=== PATIENT | male | born 1945 | race Caucasian/White ===

== ENCOUNTER 2017-10-15 16:49 | Inpatient (IN) ==
[2017-10-15] MEDS ORDERED: Naloxone 0.4 MG/ML INJ IVP PRN (20:12)
--- NOTE | 2017-10-15 20:12 | Internal Med History&Physical ---
Date of Encounter: 10/15/17 Time of Encounter: 20:05 Internal Medicine - H&P: HPI Chief complaint: weakness Admitted From: Hospital to Hospital Transfer Plans for Post Hospital Care: Home History of present illness: Mr. Broussard is a 72 year old male with history of alcoholism, ileostomy, rectal cancer, GERD, COPD, SD who presented to [facility] as a transfer from [place] ED for further evaluation of sepsis of unknown etiology. Upon examining the patient he reported that when he woke up this morning he felt chills, shaky, cold, weak. The symptoms did not go away after 2 hours so he decided to go to the ED to be evaluated. He denied recent sickness, sick contacts, fever, abdominal pain, nausea, vomiting, dysuria, headache, change in vision, chest pain, change in ileostomy discharge, tenderness at stoma, diaphoresis, diarrhea, melena, hematechezia. His last beer was yesterday evening. He is a current alcoholic since he was 14 years old and drinks a six-pack of beer a day. He is a current smoker of 1.5 packs per day. He is a full code. At [place], the patient meant septic criteria with WBC 16.8 and tachycardia 127. Lactic acid 2.2, INR 1.7, PT 19.3, alkaline phosphatase 229, total bilirubin 3.3, AST 78, ALT 37, ammonia 84, troponin negative. Abdominal CT demonstrating small moderate pericholecystic fluid, cirrhosis with portal venous hypertension. Chest x-ray unremarkable. Patient was given IV fluids, Zosyn, blood cultures taken. Past Med Surg Social Fam HX - Past Medical History Attestation: Yes The following information was validated with the patient. Source: patient Medical history: cancer, COPD, liver disease, myocardial infarction Additional medical history: SD in 1984, colon CA Psychiatric history: no psych history - Past Surgical History Surgical History: appendectomy, colostomy Additional surgical history: 1973 Appe' - Social History Smoking Status: Current every day smoker Smokeless Tobacco Status: No Alcohol use: heavy (6 pack a beer a day) Drug use: none - Family History Brother Hx Family Cancer: Yes (brain) Internal Medicine - H&P: Meds Multivitamin/Iron/Folic Acid [Centrum Complete Multivit Tab] 1 tab PO DAILY [History] Pantoprazole Sodium [Protonix] 40 mg PO DAILY #90 tablet. 12/20/16 [Rx] Loperamide [Imodium] 4 mg PO AD #90 capsule 07/25/17 [Rx] Albuterol Sulfate [Ventolin Hfa] 2 puff IH Q6H #1 hfa.aer.ad 08/08/17 [Rx] Budesonide/Formoterol 160/4.5 [Symbicort 160/4.5] 2 puff IH Q12H #1 inhaler 11/18 [Rx] Ipratropium/Albuterol Neb [Duoneb] 3 ml IH QAM 09/05/17 [History] LORazepam [Ativan] 0.5 mg PO QID PRN 30 Days #90 tablet 10/09/17 [Rx] OxyCODONE Immed Rel [Roxicodone 5 MG] 1 tab PO Q6HR PRN 30 Days #60 tablet 10/09 [Rx] 3 Allergy/AdvReac Type Severity Reaction Status Date / Time No Known Allergies Allergy Verified 01/19/17 11:00 All Systems PM: A 10-system review of systems was performed and is negative for pertinent findings except as documented above in the HPI. - Constitutional Constitutional: chills, weakness, no fever(s), no falls - EENT Eyes: no change in vision - Cardiovascular Cardiovascular ROS IM: no chest pain, no diaphoresis, no palpitations, no syncope - Respiratory Respiratory: dyspnea, no cough, no wheezing - Gastrointestinal Gastrointestinal: no abdominal pain, no melena, no nausea, no vomiting - Genitourinary Genitourinary ROS male: no dysuria, no hematuria, no urinary frequency - Integumentary Integumentary IM: no erythema, no new lesions, no rash - Neurological Neurological ROS: weakness, no loss of vision - Endocrine Endocrine IM: no fatigue - Hematologic/Lymphatic Hematologic/Lymphatic: easy bleeding - Constitutional Vitals: Temp Pulse Resp BP Pulse Ox 97.7 F 76 16 134/69 97 10/15/17 18:50 10/15/17 18:50 10/15/17 18:50 10/15/17 18:50 10/15/17 18:50 General appearance: Present: A&O X 3, pleasant, no acute distress - Head Head exam: Present: atraumatic, normal inspection - Eye Eye exam: Present: conjuntiva pink. Absent: scleral icterus - Respiratory Respiratory exam: Present: CTAB. Absent: rales, rhonchi, wheezes - Cardiovascular Cardiovascular exam: Present: RRR, +S1, +S2. Absent: systolic murmur - GI/Abdominal GI/Abdominal exam: Present: distended, normal bowel sounds, soft. Absent: firm , guarding, tenderness, no peritoneal signs - Extremities Exam Extremities exam: Present: normal inspection. Absent: calf tenderness, pedal edema, tenderness - Back Exam Back exam: Absent: rash noted - Neurological Exam Neurological exam: Present: alert, oriented X3 - Psychiatric Psychiatric exam: Present: normal affect, normal mood - Skin Skin exam: Present: abrasion (echymosis on left upper extremity), dry, intact - Assessment and plan (1) Sepsis Current Visit: Yes Status: Acute Assessment and plan: Sepsis secondary to unknown etiology. Consider early cholecystitis, UTI, bacteremia. Unlikely to be stoma or SBP. Patient has no abdominal tenderness, SIRS tachycardic 127, WBC 16.8, lactic acid 2.2 alkaline phosphatase 229, AST 78, ALT 37, total bilirubin 3.[address] demonstrated small moderate pericholecystic fluid with recommendation for HIDA scan if clinically relevant, cirrhosis with portal venous hypertension. Chest x-ray unremarkable plan -continue IV zosyn -blood cultures taken at [facility] -ordered urinalysis -continue IV fluids at 30ml/kg -trend lactic acid -consider ordering HIDA scan if patient develops abdominal pain and/or urinalysis and blood cultures negative Qualifiers: Qualified Code(s): A41.9 - Sepsis, unspecified organism (2) Cirrhosis of liver Current Visit: Yes Status: Acute Assessment and plan: History liver cirrhosis secondary to alcoholism. Cirrhosis of liver demonstrated by abdominal CT. Lab results correlate with cirrhosis: INR 1.7, elevated liver function tests Qualifiers: Qualified Code(s): K70.30 - Alcoholic cirrhosis of liver without ascites (3) Ileostomy care Current Visit: No Status: Chronic Assessment and plan: Ileostomy s/p history of rectal cancer 3yrs ago for which he underwent chemo and radiation and surgery. Stoma inflamed appearing. He denied tenderness and abnormal drainage from the stoma into ileostomy. -continue to monitor (4) Alcohol abuse Current Visit: Yes Status: Acute Assessment and plan: Current alcoholic six-pack per day since he was 14 years old which is about 58 years now. He was canceled on alcohol cessation and reported wanting to cut down drinking over time. -Continue CIWA protocol (5) COPD (chronic obstructive pulmonary disease) Current Visit: No Status: Chronic Assessment and plan: History of COPD controlled with Symbicort and duonebs. oxygen saturation appropriate on room air -continue medications Qualifiers: Qualified Code(s): J44.9 - Chronic obstructive pulmonary disease, unspecified (6) Tobacco use Current Visit: No Status: Chronic Assessment and plan: 1.5ppd for 58 years, since he was 14 years old. Was counseled on smoking cessation. (7) GERD (gastroesophageal reflux disease) Current Visit: No Status: Chronic Qualifiers: Esophagitis presence: without esophagitis Qualified Code(s): K21.9 - Gastro -esophageal reflux disease without esophagitis (8) DVT prophylaxis Current Visit: Yes Status: Acute Assessment and plan: heparin sq - Time Spent With Patient Total time spent is greater than 50% in coordination of care (as documented) at patient's floor/unit and/or counseling patient:
[2017-10-15] MEDS ORDERED: *HR* LORazepam 2 MG/ML VIAL IVP PRN ×3 (20:25)
[2017-10-15] MEDS: 0.9 % Sodium Chloride 1,000 ML IVC SCH (21:06)
[2017-10-15] MEDS ORDERED: *HR* Heparin 5,000 UNIT/ML VIAL SQ SCH (22:00)
[2017-10-15] MEDS: Piperacillin/Tazobactam 3.375 GM in 0.9 % Sodium Chloride Mini Bag 100 ML IVPB SCH (23:10)
[2017-10-15] MEDS ORDERED: Ipratropium/Albuterol Neb 3 ML IH PRN (23:56)
[2017-10-16 02:13] LABS: Bilirubin,Urine Small (Negative); Blood,Urine Negative (Negative); Clarity,Urine Clear (Clear); Glucose,Urine (UA) Normal (Normal); Ketones,Urine Negative (Negative); Leukocyte Esterase,Urine Negative (Negative); Nitrite,Urine Negative (Negative); Protein,Urine 30 mg/dL (Neg-Trace); Urobilinogen,Urine Normal (Normal)
[2017-10-16 02:25] LABS: Bacteria,Urine Few per hpf (None-Few); RBC,Urine 0-3 per hpf (0-3); WBC,Urine 0-3 per hpf (0-3)
[2017-10-16 02:26] LABS: Color,Urine Pink (Yellow)
[2017-10-16] MEDS: 0.9 % Sodium Chloride 1,000 ML IVC SCH (05:13)
[2017-10-16 06:33] LABS: Segmented Neutrophils % 86.4 %
[2017-10-16 06:35] LABS: Basophils % 0.2 %; Eosinophils # 0.1 K/mcL (0.0-0.6); Eosinophils % 0.6 %; Hematocrit 40.1 % (37.5-50.1); Immature Granulocytes % 0.5 % (0-4); Immature Platelets 6.1 % (1.1-6.1); Lymphocytes # 0.5 K/mcL (0.6-4.6); Lymphocytes % 3.4 %; Mean Corpuscular HGB Conc 34.9 g/dL (31.6-35.5); Mean Corpuscular Hemoglobin 36.6 pg (28.0-33.3); Mean Platelet Volume 11.1 fL (9.4-12.4); Monocytes # 1.4 K/mcL (0.0-1.3); Monocytes % 8.9 %; Neutrophils # 13.3 K/mcL (1.6-8.9); Red Blood Count 3.82 M/mcL (4.19-5.50)
[2017-10-16 06:36] LABS: Platelet Count 75 K/mcL (140-400)
[2017-10-16 06:40] LABS: Prothrombin Time 22.7 Seconds (9.4-12.1)
[2017-10-16 06:55] LABS: Alanine Aminotransferase 29 Units/L (7-52); Albumin/Globulin Ratio 0.9 (1.1-2.2); Alkaline Phosphatase 160 Units/L (34-104); Aspartate Amino Transferase 56 Units/L (13-39); BUN/Creatinine Ratio 14 (6-26); Bilirubin,Total 2.4 mg/dL (0.3-1.0); Blood Urea Nitrogen 14 mg/dL (8-23); Calcium 8.6 mg/dL (8.6-10.3); Carbon Dioxide 21 mEq/L (23-29); Chloride 109 mEq/L (98-107); Globulin 3.2 g/dL (2.4-3.5); Glucose 101 mg/dL (70-105); Osmolality,Calculated 281 (280-300); Potassium 3.5 mEq/L (3.5-5.1); Sodium 135 mEq/L (136-145); Total Protein 6.2 g/dL (6.4-8.9); eGFR For African Americans > 60 (> 60); eGFR For Non-African Americans > 60 (> 60)
[2017-10-16] MEDS: Piperacillin/Tazobactam 3.375 GM in 0.9 % Sodium Chloride Mini Bag 100 ML IVPB SCH ×2 (08:34→16:20)
[2017-10-16] MEDS: Folic Acid 1 MG TABLET PO SCH (08:34)
[2017-10-16] MEDS: Vitamin B Complex/Vit C/Vit E 1 EACH TABLET PO SCH (08:34)
--- NOTE | 2017-10-16 09:42 | Internal Med Progress Note ---
<Brenton Patel S - Last Filed: 10/16/17 13:11> Date of Encounter: 10/16/17 Time of Encounter: 09:00 - Assessment and plan (1) Alcohol abuse Current Visit: Yes Status: Chronic Assessment and plan: On CIWA protocol -last CIWA score was 1 Drinks 6 pack per day of beer -for about 60yrs -counsled on alcohol cessation -pt has scleral icterus -pt denies anxiety, tremors, hallucinations (2) Cirrhosis of liver Current Visit: Yes Status: Acute Assessment and plan: Secondary to EtOH abuse -bilirubin 3.3 -Alk phos 160 -ALT/AST within normal levels -CT scan showed abdominal cirrhosis of liver -INR 1.7, 2.0 this morning -high protein diet recommended, ensure protein TID (3) Sepsis Current Visit: Yes Status: Acute Assessment and plan: Sepsis secondary to unknown etiology. -CT showed pericholecystic fluid, cirrhosis, portal HTN -blood cultures pending -HIDA scan pending, although pt denies abdominal tenderness -unlikely to be SBP, pt has no abd pain -unlikely to be from ileostomy bag -CXR unremarkable SIRS criteria at [facility] -tachycardic 127, WBC 16.8, lactic acid 2.2 -today WBC is 15.4, HR 70 -Pt is on IV Zosyn -Blood cultures pending -UA pending -IVF at 125cc/hr NS -will check lactic acid again Qualifiers: Sepsis type: sepsis due to unspecified organism Qualified Code(s): A41.9 - Sepsis, unspecified organism (4) COPD (chronic obstructive pulmonary disease) Current Visit: No Status: Chronic Assessment and plan: Pt is well controlled with Symbicort and Duonebs His O2 saturation is 97% on RA Pt has no complaints of SOB/wheeze Pt is counsled on smoking cessation to prevent worsening of COPD Qualifiers: COPD type: unspecified COPD Qualified Code(s): J44.9 - Chronic obstructive pulmonary disease, unspecified (5) Tobacco use Current Visit: No Status: Chronic Assessment and plan: 1.5ppd for almost 60yrs Was counseled on smoking cessation. (6) GERD (gastroesophageal reflux disease) Current Visit: No Status: Chronic Assessment and plan: Pt is on prilosec Pt has no complaints at this time of GERD Continue home medications Qualifiers: Esophagitis presence: without esophagitis Qualified Code(s): K21.9 - Gastro -esophageal reflux disease without esophagitis (7) Ileostomy care Current Visit: No Status: Chronic Assessment and plan: Ileostomy s/p history of rectal cancer 3yrs ago for which he underwent chemo and radiation and surgery. Pt has large area of erythema around the ileostomy -pt denies any pain -pt has no pus or signs of infxn of inflamed skin -stump is pulsating and pink, no s/s of ischemia (8) DVT prophylaxis Current Visit: Yes Status: Acute Assessment and plan: SCD (9) Coagulopathy Current Visit: Yes Status: Acute Assessment and plan: Pt has history of cirrhosis -INR of 2, PTT 22.7 -will give 10mg of vitamin K -ultrasound abdomen today -thrombocyotpenia (75k) -will check PT/PTT/INR in AM - Time Spent With Patient Total time spent is greater than 50% in coordination of care (as documented) at patient's floor/unit and/or counseling patient: less than 15 minutes - Subjective Interval history: Pt is seen at the bedside. He is a 72yo male who was admitted to [place] with weakness and feeling like his legs were giving out. He was transferred to [place] due to sepsis of unknown origin. He has a PMH of alcoholism, COPD, MD w/o stents, rectal cancer s/p ileostomy, and cirrhosis of the liver. He currently has no new complaints. He denies chest pain, abdominal pain, SOB, N /V/D, dizziness, fever, chills, vomiting, agitation, feeling tremorous. Pt has a CIWA score of 1, nurse states he is easily agitated but shows no symptoms of DT's or EtOH withdrawal. HIDA scan is pending - will be performed at 1pm because pt ate breakfast Pt met sepsis criteria at [facility] - WBC count of 16.8, HR ax 127, Lac acid 2.2 -pt HR today is 70, t is 97.5 -WBC count is 15.4 -RR is 16 Fluids - 125cc/hr IV NS discontinued this AM Electrolytes - all within normal limits Nutrition - NPO currently for HIDA scan DVT prophylaxis - he has SCD's (pt is thombocytopenic) GI prophylaxis - pt is on Prisolec - Constitutional Vitals: Temp Pulse Resp BP Pulse Ox 97.5 F L 70 16 143/80 97 10/16/17 06:59 10/16/17 06:59 10/16/17 06:59 10/16/17 06:59 10/16/17 06:59 General appearance: Present: A&O X 3, no acute distress, obese - Head Head exam: Present: atraumatic, normal inspection - Eye Eye exam: Present: scleral icterus - Neck Neck exam general surgery: Present: supple - Respiratory Respiratory exam: Present: CTAB - Cardiovascular Cardiovascular exam: Present: RRR, +S1, +S2 - GI/Abdominal GI/Abdominal exam: Present: no peritoneal signs. Absent: tenderness Additional comments: ileostomy in place, stump is pulsating, fecal material present, large area of erythema around the ileostomy bag - Neurological Exam Neurological exam: Present: oriented X3, no focal deficits - Skin Skin exam: Present: intact Internal Medicine: Result - Labs CBC & Chem 7: 10/16/17 06:00 10/16/17 06:00 Labs: Short CBC 10/16/17 Range/Units 06:00 WBC 15.4 H (4.3-11.1) K/mcL Hgb 14.0 (12.9-16.9) g/dL Hct 40.1 (37.5-50.1) % Plt Count 75 L (140-400) K/mcL Neutrophils # 13.3 H (1.6-8.9) K/mcL BMP 10/16/17 06:00 Sodium 135 L Potassium 3.5 Chloride 109 H Carbon Dioxide 21 L BUN 14 Creatinine 0.99 Glucose 101 Calcium 8.6 Liver Function 10/16/17 Range/Units 06:00 Total Bilirubin 2.4 H (0.3-1.0) mg/dL AST 56 H (13-39) Units/L ALT 29 (7-52) Units/L Alkaline Phosphatase 160 H (34-104) Units/L Albumin 3.0 L (3.5-5.7) g/dL Urine 10/16/17 Range/Units 01:20 Urine Color [place] (Yellow) Urine Clarity Clear (Clear) Urine pH 6.0 (5.0-8.0) pH Units Ur Specific [place] 1.020 (1.010-1.025) Urine Protein 30 H (Neg-Trace) mg/dL Urine Glucose (UA) Normal (Normal) mg/dL - ABG Interpretation ABG results: PT/INR, D-dimer PT 22.7 Seconds (9.4-12.1) H 10/16/17 06:00 - VTE Reasons for not Prescribing Prophylaxis: Not indicated-Anticoagulated or INR therapeutic Consult Discharge Plan - Plan Referrals: NONE,PCP [Primary Care Provider] - <Son Bourgeois - Last Filed: 10/16/17 18:16> Date of Encounter: 10/16/17 - Assessment and plan (1) Tobacco use Current Visit: No Status: Chronic (2) GERD (gastroesophageal reflux disease) Current Visit: No Status: Chronic Qualifiers: Esophagitis presence: without esophagitis Qualified Code(s): K21.9 - Gastro -esophageal reflux disease without esophagitis (3) COPD (chronic obstructive pulmonary disease) Current Visit: No Status: Chronic Qualifiers: COPD type: unspecified COPD Qualified Code(s): J44.9 - Chronic obstructive pulmonary disease, unspecified (4) Ileostomy care Current Visit: No Status: Chronic (5) Sepsis Current Visit: Yes Status: Acute Qualifiers: Sepsis type: sepsis due to unspecified organism Qualified Code(s): A41.9 - Sepsis, unspecified organism (6) DVT prophylaxis Current Visit: Yes Status: Acute (7) Cirrhosis of liver Current Visit: Yes Status: Acute Qualifiers: Hepatic cirrhosis type: alcoholic cirrhosis Ascites presence: without ascites Qualified Code(s): K70.30 - Alcoholic cirrhosis of liver without ascites (8) Alcohol abuse Current Visit: Yes Status: Chronic (9) Coagulopathy Current Visit: Yes Status: Acute - Time Spent With Patient Total time spent is greater than 50% in coordination of care (as documented) at patient's floor/unit and/or counseling patient: - Constitutional Vitals: Temp Pulse Resp BP Pulse Ox 97.9 F 67 16 120/67 95 10/16/17 17:21 10/16/17 17:21 10/16/17 17:21 10/16/17 17:21 10/16/17 17:21 Internal Medicine: Result - Labs CBC & Chem 7: 10/16/17 06:00 10/16/17 06:00 Labs: Short CBC 10/16/17 Range/Units 06:00 WBC 15.4 H (4.3-11.1) K/mcL Hgb 14.0 (12.9-16.9) g/dL Hct 40.1 (37.5-50.1) % Plt Count 75 L (140-400) K/mcL Neutrophils # 13.3 H (1.6-8.9) K/mcL BMP 10/16/17 06:00 Sodium 135 L Potassium 3.5 Chloride 109 H Carbon Dioxide 21 L BUN 14 Creatinine 0.99 Glucose 101 Calcium 8.6 Liver Function 10/16/17 Range/Units 06:00 Total Bilirubin 2.4 H (0.3-1.0) mg/dL AST 56 H (13-39) Units/L ALT 29 (7-52) Units/L Alkaline Phosphatase 160 H (34-104) Units/L Albumin 3.0 L (3.5-5.7) g/dL Urine 10/16/17 Range/Units 01:20 Urine Color [place] (Yellow) Urine Clarity Clear (Clear) Urine pH 6.0 (5.0-8.0) pH Units Ur Specific [place] 1.020 (1.010-1.025) Urine Protein 30 H (Neg-Trace) mg/dL Urine Glucose (UA) Normal (Normal) mg/dL - ABG Interpretation ABG results: PT/INR, D-dimer PT 22.7 Seconds (9.4-12.1) H 10/16/17 06:00 - Impressions Impressions Liver Scan Nuclear Medicine 10/16/17 13:20 IMPRESSION: No scintigraphic evidence of acute cholecystitis. Slow hepatic washout consistent with chronic liver parenchymal disease. Gallbladder ejection fraction of 83% which is normal. D/ / Esha Saldivar MD / Esha Saldivar MD Interpreting Provider: Esha Saldivar MD Abdomen Ultrasound 10/16/17 15:30 IMPRESSION: Thickened gallbladder wall with nonmobile echogenic focus suggesting polyp. No ductal dilatation. Splenomegaly with splenic size of 600 ml without focal mass. Fatty infiltration of the liver. Liver is within normal limits in size. Prominent splenic vessels. Overall findings suggesting cirrhosis. D/ / 10/16/2017 16:52:22 Jennifer Rust MD / tyrone Interpreting Provider: Jennifer Rust MD - Attending Attestation Given the brady-stomal eczema, will have wound care Nurse take care of this. She will be consulted. I did portray poor prognosis given advanced Cirrhosis, he does have protein calorie malnutrition, coagulopathy and low platletes with some hyperbilirubinemia. Would stop antibiotics once cultures come back negative. I examined this patient and my medical decision-making was reviewed with the Resident Physician. I agree with the documented findings, disposition and treatment plan as described except to the extent set forth below.
[2017-10-16] MEDS ORDERED: *HR* Phytonadione 5 MG TABLET PO ONE (10:46)
[2017-10-16 11:13] LABS: Lipase 55 Units/L (11-82)
[2017-10-16] MEDS: Budesonide/Formoterol 160/4.5 MDI IH SCH ×2 (11:23→21:45)
[2017-10-16] MEDS ORDERED: Thiamine (B-1) 100 MG, Folic Acid 1 MG, MVI, adult with vitamin K 10 ML in 0.9 % Sodi... IVPB SCH ×2 (18:00→20:00)
[2017-10-17] MEDS: Piperacillin/Tazobactam 3.375 GM in 0.9 % Sodium Chloride Mini Bag 100 ML IVPB SCH ×2 (00:51→08:34)
[2017-10-17 04:56] LABS: INR 1.9; Prothrombin Time 21.2 Seconds (9.4-12.1)
[2017-10-17 04:59] LABS: Activated Partial Thrombo Time 37.3 Seconds (26.0-36.0)
[2017-10-17 05:11] LABS: Alanine Aminotransferase 27 Units/L (7-52); Albumin/Globulin Ratio 0.9 (1.1-2.2); Alkaline Phosphatase 162 Units/L (34-104); Aspartate Amino Transferase 53 Units/L (13-39); BUN/Creatinine Ratio 14 (6-26); Bilirubin,Total 2.1 mg/dL (0.3-1.0); Blood Urea Nitrogen 13 mg/dL (8-23); Calcium 8.3 mg/dL (8.6-10.3); Carbon Dioxide 22 mEq/L (23-29); Chloride 109 mEq/L (98-107); Globulin 3.3 g/dL (2.4-3.5); Glucose 104 mg/dL (70-105); Osmolality,Calculated 284 (280-300); Potassium 3.4 mEq/L (3.5-5.1); Sodium 137 mEq/L (136-145); Total Protein 6.3 g/dL (6.4-8.9); eGFR For African Americans > 60 (> 60); eGFR For Non-African Americans > 60 (> 60)
[2017-10-17 05:37] LABS: Vitamin B12 568 pg/mL (250-1100)
[2017-10-17 05:38] LABS: Folate > 22.3 ng/mL (3.0-16.0)
[2017-10-17 07:44] VITALS: BP 135/75
[2017-10-17] MEDS: Folic Acid 1 MG TABLET PO SCH (08:34)
[2017-10-17] MEDS: Vitamin B Complex/Vit C/Vit E 1 EACH TABLET PO SCH (08:34)
[2017-10-17 09:01] LABS: Hemoglobin 13.9 g/dL (12.9-16.9)
[2017-10-17 09:03] LABS: Basophils % 0.5 %; Eosinophils # 0.2 K/mcL (0.0-0.6); Eosinophils % 2.2 %; Hematocrit 40.4 % (37.5-50.1); Immature Granulocytes % 0.5 % (0-4); Immature Platelets 6.5 % (1.1-6.1); Lymphocytes # 0.6 K/mcL (0.6-4.6); Lymphocytes % 6.3 %; Mean Corpuscular HGB Conc 34.4 g/dL (31.6-35.5); Mean Corpuscular Hemoglobin 36.4 pg (28.0-33.3); Mean Corpuscular Volume 105.8 fL (83.0-100.0); Mean Platelet Volume 11.8 fL (9.4-12.4); Monocytes % 11.5 %; Neutrophils # 6.9 K/mcL (1.6-8.9); Red Blood Count 3.82 M/mcL (4.19-5.50); Red Cell Distribution Width 15.3 % (11.5-14.5)
[2017-10-17 09:08] LABS: Platelet Count 70 K/mcL (140-400)
--- NOTE | 2017-10-17 09:33 | Discharge Summary ---
<Brenton Patel S - Last Filed: 10/17/17 09:27> - NOTES TO OUTPATIENT PROVIDER Notes to Outpatient Provider: Pt needs to be closely monitored by GI doctor for crirrhosis. Pt counsled on alcohol abuse. Orders not resulted at time of discharge: Pending orders 10/16/17 10:13 Culture,Blood [BC] Routine Culture,Blood,Additional [BC] Routine 10/17/17 04:19 Homocysteine AM 0400 MMA (VIT B12 STATUS) AM 0400 Date of Encounter: 10/17/17 Time of Encounter: 09:00 - Discharge Diagnosis (1) Sepsis Priority: Primary Status: Acute Assessment and Plan: Sepsis secondary to unknown etiology. -CT showed pericholecystic fluid, cirrhosis, portal HTN -blood cultures pending. Pt wants to be discharged despite BC not being back. He is advised to come back to the hospital if they come back positive -HIDA scan showed EF of 83% -unlikely to be SBP, pt has no abd pain -unlikely to be from ileostomy bag -CXR unremarkable -abdominal ultrasound showed thickened GB with nonmobile echogenic focus suggesting polyp, no ductal dilation, splenomegaly w/ splenic size normal. fatty infiltration of liver, prominent splenic vessles SIRS criteria at [place] -tachycardic 127, WBC 16.8, lactic acid 2.2 -today WBC is 8.7, HR 65 -Pt is on IV Zosyn. Will DC that today annd discharge pt on PO augmentin x 10days -Blood cultures pending, pt doesn't want to wait for them to come back Qualifiers: Sepsis type: sepsis due to unspecified organism Qualified Code(s): A41.9 - Sepsis, unspecified organism (2) Cirrhosis of liver Priority: Secondary Status: Acute Assessment and Plan: Secondary to EtOH abuse -bilirubin 2.1 -Alk phos 160 -ALT/AST within normal levels -CT scan showed abdominal cirrhosis of liver -INR 1.79 this morning -high protein diet recommended, ensure protein TID -pt is encourgaed to eat a high protein diet, ensure TID and to quit drinking -MELD score is 20 (3) Alcohol abuse Priority: Secondary Status: Chronic Assessment and Plan: On CIWA protocol -last CIWA score was 2 Drinks 6 pack per day of beer -for about 60yrs -counsled on alcohol cessation -pt has scleral icterus -pt denies anxiety, tremors, hallucinations (4) COPD (chronic obstructive pulmonary disease) Priority: Secondary Status: Chronic Assessment and Plan: Pt is well controlled with Symbicort and Duonebs His O2 saturation is 97% on RA Pt has no complaints of SOB/wheeze Pt is counsled on smoking cessation to prevent worsening of COPD Qualifiers: COPD type: unspecified COPD Qualified Code(s): J44.9 - Chronic obstructive pulmonary disease, unspecified (5) Tobacco use Priority: Secondary Status: Chronic Assessment and Plan: 1.5ppd for almost 60yrs Was counseled on smoking cessation. Refuses nictoine patch (6) GERD (gastroesophageal reflux disease) Priority: Secondary Status: Chronic Assessment and Plan: Pt is on prilosec Pt has no complaints at this time of GERD Continue home medications Qualifiers: Esophagitis presence: without esophagitis Qualified Code(s): K21.9 - Gastro -esophageal reflux disease without esophagitis (7) Ileostomy care Priority: Secondary Status: Chronic Assessment and Plan: Ileostomy s/p history of rectal cancer 3yrs ago for which he underwent chemo and radiation and surgery. Pt has large area of erythema around the ileostomy -pt denies any pain -pt has no pus or signs of infxn of inflamed skin -stump is pulsating and pink, no s/s of ischemia -Wound care consulted but pt doesn't want to wait (8) DVT prophylaxis Priority: Secondary Status: Acute Assessment and Plan: SCD (9) Coagulopathy Priority: Secondary Status: Acute Assessment and Plan: Pt has history of cirrhosis -INR of 1.9, PTT 37 -thrombocyotpenia (75k) -encouraged alcohol cessation and follow up with PCP outpt and to get referral for GI Hospital course: Mr. Broussard is a 72 year old male Discharge discussed with: patient, nurse Time spent discussing smoking cessation with patient: 3 to 10 minutes - Time Spent with Patient Total time spent providing and/or coordinating discharge services: Less than 30 minutes - Discharge Medications Prescriptions: Amoxicillin/Clavulanate [Augmentin] 875 mg PO BIDWM 10 Days #20 tablet Home Medications: Multivitamin/Iron/Folic Acid [Centrum Complete Multivit Tab] 1 tab PO DAILY [History] Pantoprazole Sodium [Protonix] 40 mg PO DAILY #90 tablet. 12/20/16 [Rx] Loperamide [Imodium] 4 mg PO AD #90 capsule 07/25/17 [Rx] Budesonide/Formoterol 160/4.5 [Symbicort 160/4.5] 2 puff IH Q12H #1 inhaler 11/18 [Rx] Albuterol Sulfate [Ventolin Hfa] 2 puff IH Q6H PRN 10/16/17 [History] LORazepam [Ativan] 0.5 mg PO TID PRN 10/16/17 [History] OxyCODONE Immed Rel [Roxicodone 5 MG] 1 tab PO BID PRN 10/16/17 [History] Amoxicillin/Clavulanate [Augmentin] 875 mg PO BIDWM 10 Days #20 tablet 10/17/17 [Rx] Allergies/Adverse Reactions: 3 Allergy/AdvReac Type Severity Reaction Status Date / Time No Known Allergies Allergy Verified 10/16/17 09:12 Date of admission: 10/16/17 12:05 Primary care physician: PCP NONE Consults: 10/16/17 10:46 Consult to Telephone Station Installer [CONS] Routine Reason for SW Consult: alcoholism 10/16/17 17:42 Consult to Wound Care [CONS] Routine Reason for Consult: ileostomy care Call Completed: No - Constitutional Vitals: Temp Pulse Resp BP Pulse Ox 97.6 F 72 17 135/75 97 10/17/17 07:42 10/17/17 07:42 10/17/17 07:42 10/17/17 07:42 10/17/17 07:42 General appearance: Present: disheveled, A&O X 3, no acute distress, obese - Head Head exam: Present: normal inspection - Neck Neck exam general surgery: Present: supple - Respiratory Respiratory exam: Present: CTAB - Cardiovascular Cardiovascular exam: Present: RRR, +S1, +S2 - GI/Abdominal GI/Abdominal exam: Present: soft, no peritoneal signs. Absent: tenderness Additional comments: ileostomy bag in place - Neurological Exam Neurological exam: Present: oriented X3, no focal deficits - Psychiatric Psychiatric exam: Present: normal mood - Skin Skin exam: Present: excoriation (around ileostomy bag) - Patient Status Disposition: Home, Self-Care Condition: Fair Functional capacity at discharge: independent ambulation Overall status at discharge: patient is progressing back to baseline - Discharge Instructions Instructions: Amoxicillin/Clavulanate Potassium (By mouth), Sepsis (DC) Follow Up With: NONE,PCP [Primary Care Provider] - Brenton Patel [Resident] - 10/25/17 (follow up on cirrhosis, etoh abuse, smoking cessation) Familia Fernandez MD [Non-Partnered Physician] - 10/24/17 (Follow up on cirrhosis -pt has long hx of alcohol abuse) - Diet and Activity Activity: increase activity as tolerated Diet: other (high protein diet) - VTE Reasons for not Prescribing Prophylaxis: Not indicated-Anticoagulated or INR therapeutic Documentation of Mechanical Device: Intermittent pneumatic compression device <Eddy Champagne - Last Filed: 10/17/17 20:18> Orders not resulted at time of discharge: Pending orders 10/16/17 10:13 Culture,Blood [BC] Routine Culture,Blood,Additional [BC] Routine 10/17/17 04:19 Homocysteine AM 0400 MMA (VIT B12 STATUS) AM 0400 Date of Encounter: 10/17/17 - Discharge Diagnosis (1) Tobacco use Status: Chronic (2) GERD (gastroesophageal reflux disease) Status: Chronic (3) COPD (chronic obstructive pulmonary disease) Status: Chronic (4) Ileostomy care Status: Chronic (5) Sepsis Status: Acute (6) DVT prophylaxis Status: Acute (7) Cirrhosis of liver Status: Acute (8) Alcohol abuse Status: Chronic (9) Coagulopathy Status: Acute Hospital course: Mr. Broussard is a 72 year old male - Time Spent with Patient Total time spent providing and/or coordinating discharge services: Date of admission: 10/16/17 12:05 Primary care physician: PCP NONE Consults: 10/16/17 10:46 Consult to Telephone Station Installer [CONS] Routine Reason for SW Consult: alcoholism 10/16/17 17:42 Consult to Wound Care [CONS] Routine Reason for Consult: ileostomy care Call Completed: No - Constitutional Vitals: Temp Pulse Resp BP Pulse Ox 97.6 F 72 17 135/75 97 10/17/17 07:42 10/17/17 07:42 10/17/17 07:42 10/17/17 07:42 10/17/17 07:42 - Attending Attestation Patient was seen and examined. I agree with the discharge summary as dictated above by the resident physician. Discharge plans and recommendations were made under my direct supervision. Addendum entered and electronically signed by Brenton Patel 10/17/17 09:55: Add to diagnosis -Hypokalemia today was 3.4, replaced 40mEq PO potassium citrate
[2017-10-17] MEDS: Budesonide/Formoterol 160/4.5 MDI IH SCH (10:58)
[2017-10-17] MEDS ORDERED: Thiamine (B-1) 100 MG, Folic Acid 1 MG, MVI, adult with vitamin K 10 ML in 0.9 % Sodi... IVPB SCH (18:00)
== END 2017-10-17 11:08 | disposition home or self-care (01) | DRG 872 ==
LOC: 2ANU
PROVIDERS: ADMIT Internal Medicine; ATTEND Internal Medicine

== ENCOUNTER 2018-07-16 05:39 | Observation (INO) ==
[2018-07-16] MEDS ORDERED: 0.9 % Sodium Chloride 1,000 ML IVC SCH (11:00)
[2018-07-16] MEDS ORDERED: Naloxone 0.4 MG/ML INJ IVP PRN (11:08)
[2018-07-16] MEDS ORDERED: *HR* HYDROcodone/Acet 5/325 mg TABLET PO PRN (11:08)
--- NOTE | 2018-07-16 11:21 | Internal Med History&Physical ---
Date of Encounter: 07/16/18 Time of Encounter: 10:30 Internal Medicine - H&P: HPI Chief complaint: Bleeding from the ileostomy site Admitted From: Emergency Dept Plans for Post Hospital Care: Home History of present illness: Mr. Broussard is a 73 year old male with a past medical history of rectal cancer status post ileostomy, cirrhosis, chronic kidney disease stage III who presented with bloody ileostomy output to [facility]. Patient stated that yesterday he was sitting upright in chair when he began changing his ileostomy bag and aspirin as he took the back out, he noticed spurting blood coming out of his ileostomy. He claims that he lost "a lot of blood maybe up to 2-3 units" He then decided to come to the ER and called EMS. He did notice that he was feeling dizzy while attempting to stand up and overall very weak. He was noted to have low blood pressure on arrival to the count of 70s systolic but he responded with 2 L of fluid bolus and 2 units of blood were also given to him. He also received lab work which showed a WBC count of 17,000, hemoglobin of 5.9 with a hematocrit of 19.2. His baseline hemoglobin runs a little above 8. He was also found to have acute on chronic renal failure his baseline creatinine is roughly around 1.7 and today it was 3.11. He was then sent over to the main campus for further management of his GI bleed. Right now the patient has already received 2 units of blood and he does not feel as dizzy as he was earlier in the morning. He denies any fevers chills shakes or rigors. Denies any urinary problems or breathing problems. Past Med Surg Social Fam HX - Past Medical History Medical history: cancer, COPD, liver disease, myocardial infarction Additional medical history: colon cancer Psychiatric history: no psych history - Past Surgical History Surgical History: appendectomy, colostomy, tonsilectomy Additional surgical history: Patient reports previous eye surgery, abdominal surgery, - Social History Smoking Status: Current every day smoker Smokeless Tobacco Status: No Alcohol use: heavy, recent Drug use: none - Family History Brother Hx Family Cancer: Yes (brain) - Additional Family History Additional family history: No significant family history of GI bleed Internal Medicine - H&P: Meds Multivitamin/Iron/Folic Acid [Centrum Complete Multivit Tab] 1 tab PO DAILY 04/02/15 [History] Pantoprazole Sodium [Protonix] 40 mg PO DAILY #90 tablet. 12/01/17 [Rx] Budesonide/Formoterol 160/4.5 [Symbicort 160/4.5] 2 puff IH Q12H #1 inhaler 02/07/18 [Rx] Albuterol Sulfate [Ventolin Hfa] 2 puff IH Q6H PRN #1 hfa.aer.ad 04/10/18 [Rx] Loperamide [Imodium] 4 mg PO PRN PRN 06/13/18 [History] Ergocalciferol (VITAMIN D2) [Vitamin D2] 50,000 units PO FR 06/14/18 [History] Ferrous Sulfate 325 mg PO DAILY 06/20/18 [History] LORazepam [Ativan] 0.5 mg PO TID PRN 30 Days #90 tablet 07/12/18 [Rx] OxyCODONE Immed Rel [Roxicodone 5 MG] 1 tab PO BID PRN 30 Days #60 tablet 07/12/18 [Rx] Allergy/AdvReac Type Severity Reaction Status Date / Time No Known Allergies Allergy Verified 01/01/18 09:51 All Systems PM: A 10-system review of systems was performed and is negative for pertinent findings except as documented above in the HPI. - Constitutional Vitals: Temp Pulse Resp BP Pulse Ox 98.5 F 80 16 94/57 100 07/16/18 10:19 07/16/18 10:19 07/16/18 10:19 07/16/18 10:07/16/18 10:19 Exam: GENERAL: Alert, moderate distress, cooperative EYES: PERRLA, EOMI EARS: External ears normal, canals clear OROPHARYNX: Lips, mucosa, and tongue normal. Teeth and gums normal. Oropharynx normal. NECK: No jugulovenous distention, No carotid bruits, Carotid pulse normal contour, Supple LUNGS: Lungs clear to auscultation, Good diaphragmatic excursion CARDIAC: Normal S1 and S2; no rubs, murmurs, or gallops ABDOMEN: Ileostomy site bag is new. There is small amount roughly 10 mL of blood in the bag. Is appreciated in the back The patient does have dried blood on the lower abdomen/pelvic region from prior bleed EXTREMITIES: Extremities normal, no deformities, edema, clubbing or skin dis coloration. Good capillary refill., No ulcers NEURO: Gait not tested Reflexes normal and symmetric. Sensation grossly intact, Cranial nerves II-XII intact PULSES: 2+ radial, 2+ carotid Rest of the exam is non contributory - Assessment and Plan (1) Anemia associated with acute blood loss Current Visit: Yes Status: Acute Assessment and plan: Acute severe symptomatic anemia likely due to blood loss from ileostomy site. He has been given 2 units of PRBCs already and we will repeat a CBC right now and then trended every 6-8 hours if still low at his baseline is roughly around 8.3 he has been placed on PPI and GI has been consulted. He will remain nothing by mouth until a plan from GI is established. (2) Acute renal failure superimposed on stage 3 chronic kidney disease Current Visit: Yes Status: Acute Assessment and plan: The patient has acute on chronic renal failure His last CKD is stage III Most likely from volume depletion due to severe anemia. He has received IV fluids and we will continue gentle hydration and repeat B MP Qualifiers: Acute renal failure type: unspecified Qualified Code(s): N17.9 - Acute kidney failure, unspecified; N18.3 - Chronic kidney disease, stage 3 (moderate) (3) Leukocytosis, unspecified Current Visit: Yes Status: Acute Assessment and plan: Unclear etiology but there is no clear focus of infection. We will trend it for now with just blood cultures and not started any antibiotics unless clearly indicated Qualifiers: Leukocytosis type: leukemoid reaction Qualified Code(s): D72.823 - Leukemoid reaction (4) Cirrhosis of liver Current Visit: No Status: Chronic Assessment and plan: Appears compensated clinically. We will monitor closely. His mentation is good Qualifiers: Hepatic cirrhosis type: alcoholic cirrhosis Ascites presence: without ascites Qualified Code(s): K70.30 - Alcoholic cirrhosis of liver without ascites - Summary of Assessment and Plan Summary of Assessment and Plan: DVT prophylaxis-EP CD - Time Spent With Patient Total time spent is greater than 50% in coordination of care (as documented) at patient's floor/unit and/or counseling patient:75 min Greater than 35 minutes
[2018-07-16] MEDS ORDERED: *HR* FentaNYL (PF) 100 MCG/2 ML VIAL ONE (15:42)
[2018-07-16] MEDS ORDERED: *HR* Midazolam HCl 5 MG/5 ML VIAL IVP ONE ×2 (15:42→16:30)
[2018-07-16] MEDS ORDERED: *HR* FentaNYL (PF) 100 MCG/2 ML VIAL IVP ONE (16:30)
[2018-07-16] MEDS ORDERED: Simethicone 40 MG/0.6 ML MLS IR ONE (16:30)
--- NOTE | 2018-07-16 16:30 | Pre-Sedation Evaluation ---
Pre-sedation evaluation - Pre-sedation checklist Date of procedure: 07/16/18 Procedure: EGD Recent Vitals: Last Vital Signs Temp 98.6 F 07/16/18 16:13 Pulse 70 07/16/18 16:13 Resp 16 07/16/18 16:13 BP 105/52 07/16/18 16:13 Pulse Ox 100 07/16/18 16:13 H&P (including ROS) documented in medical record: Yes Previous reaction to sedatives/anesthetics: No Dietary Status: NPO after Midnight Dentition: poor dentition ASA Classification *see protocol: CLASS III-Severe systemic disease
[2018-07-16] MEDS: Neosporin OINT 15 GM TUBE TP SCH ×2 (18:18→20:43)
[2018-07-16] MEDS: Pantoprazole 40 MG VIAL IVP SCH (18:20)
[2018-07-16] MEDS ORDERED: Pantoprazole 40 MG in 0.9 % Sodium Chloride 50 ML IVPB SCH (21:00)
[2018-07-17] MEDS: Pantoprazole 40 MG VIAL IVP SCH ×2 (06:06→18:50)
[2018-07-17 07:19] LABS: Basophils % 0.3 %; Hemoglobin 6.7 g/dL (12.9-16.9)
[2018-07-17 07:22] LABS: Eosinophils # 0.3 K/mcL (0.0-0.6); Eosinophils % 3.1 %; Hematocrit 21.4 % (37.5-50.1); Immature Granulocytes % 0.4 % (0-4); Immature Platelets 2.3 % (1.1-6.1); Lymphocytes # 0.7 K/mcL (0.6-4.6); Lymphocytes % 7.8 %; Mean Corpuscular HGB Conc 31.3 g/dL (31.6-35.5); Mean Platelet Volume 10.5 fL (9.4-12.4); Monocytes # 0.8 K/mcL (0.0-1.3); Monocytes % 8.4 %; Neutrophils # 7.4 K/mcL (1.6-8.9); Red Blood Count 2.23 M/mcL (4.19-5.50); Red Cell Distribution Width 20.6 % (11.5-14.5)
[2018-07-17 07:42] LABS: Albumin 2.7 g/dL (3.5-5.7); Albumin/Globulin Ratio 1.4 (1.1-2.2); Bilirubin,Total 0.8 mg/dL (0.3-1.0); Calcium 8.1 mg/dL (8.6-10.3); Potassium 4.7 mEq/L (3.5-5.1); Total Protein 4.7 g/dL (6.4-8.9)
[2018-07-17] MEDS: Neosporin OINT 15 GM TUBE TP SCH ×3 (08:04→18:50)
[2018-07-17] MEDS ORDERED: 0.9 % Sodium Chloride 1,000 ML IVC SCH (08:45)
[2018-07-17 09:29] LABS: Platelet Count 83 K/mcL (140-400)
[2018-07-17 09:30] LABS: Platelet Estimate Decreased (Normal)
[2018-07-17 09:32] LABS: Anisocytosis 2+ (Not Present)
--- NOTE | 2018-07-17 11:48 | Discharge Summary ---
Date of Encounter: 07/17/18 Time of Encounter: 18:00 - Discharge Diagnosis (1) Anemia associated with acute blood loss Priority: Primary Status: Acute Assessment and Plan: 73 year old male with a past medical history of rectal cancer status post ileostomy, cirrhosis, chronic kidney disease stage III who presented with bloody ileostomy output to [facility]. Patient stated that yesterday he was sitting upright in chair when he began changing his ileostomy bag and aspirin as he took the back out, he noticed spurting blood coming out of his ileostomy. He claims that he lost "a lot of blood maybe up to 2-3 units" He then decided to come to the ER and called EMS. He did notice that he was feeling dizzy while attempting to stand up and overall very weak. He was noted to have low blood pressure on arrival to the count of 70s systolic but he responded with 2 L of fluid bolus and 2 units of blood were also given to him. He was assessed with acute severe symptomatic anemia likely due to blood loss from ileostomy site. He was transfused 2 units of PRBCs and started on PPI BID. GI was consulted and performed a small bowel enteroscopy showing bleeding from the external surface of the ileostomy which was cauterized with APC. GI recommend local care of the ileostomy with a triple antibiotic His hemoglobin was however 6.7 this am and he was transfused 2 units of PRBC. Will repeat CBC prior to discharge. (2) Cirrhosis of liver Priority: Primary Status: Chronic Assessment and Plan: Appears compensated clinically. We will monitor closely. His mentation is good Qualifiers: Hepatic cirrhosis type: alcoholic cirrhosis Ascites presence: without ascites Qualified Code(s): K70.30 - Alcoholic cirrhosis of liver without ascites (3) Acute renal failure superimposed on stage 3 chronic kidney disease Priority: Primary Status: Acute Qualifiers: Acute renal failure type: unspecified Qualified Code(s): N17.9 - Acute kidney failure, unspecified; N18.3 - Chronic kidney disease, stage 3 (moderate) (4) Leukocytosis, unspecified Priority: Primary Status: Acute Qualifiers: Leukocytosis type: leukemoid reaction Qualified Code(s): D72.823 - Leukemoid reaction Hospital course: Mr. Broussard is a 73 year old male - Time Spent with Patient Total time spent providing and/or coordinating discharge services: - Discharge Medications Prescriptions: New Maximiliano/Poly/Nataly OINT [Triple Antibiotic Ointment] 1 appl TP TID 30 Days #1 tube Continue Multivitamin/Iron/Folic Acid [Centrum Complete Multivit Tab] 1 tab PO DAILY Pantoprazole Sodium [Protonix] 40 mg PO DAILY #90 tablet. Budesonide/Formoterol 160/4.5 [Symbicort 160/4.5] 2 puff IH Q12H #1 inhaler Albuterol Sulfate [Ventolin Hfa] 2 puff IH Q6H PRN #1 hfa.aer.ad PRN Reason: Shortness Of Breath Loperamide [Imodium] 4 mg PO PRN PRN MDD 12 tab/24hr PRN Reason: Diarrhea Ergocalciferol (VITAMIN D2) [Vitamin D2] 50,000 units PO FR LORazepam [Ativan] 0.5 mg PO TID PRN 30 Days #90 tablet PRN Reason: Anxiety OxyCODONE Immed Rel [Roxicodone 5 MG] 1 tab PO BID PRN 30 Days #60 tablet PRN Reason: Pain Ferrous Sulfate [Iron] 325 mg PO DAILY Home Medications: Multivitamin/Iron/Folic Acid [Centrum Complete Multivit Tab] 1 tab PO DAILY 04/02/15 [History] Pantoprazole Sodium [Protonix] 40 mg PO DAILY #90 tablet. 12/01/17 [Rx] Budesonide/Formoterol 160/4.5 [Symbicort 160/4.5] 2 puff IH Q12H #1 inhaler 02/07/18 [Rx] Albuterol Sulfate [Ventolin Hfa] 2 puff IH Q6H PRN #1 hfa.aer.ad 04/10/18 [Rx] Loperamide [Imodium] 4 mg PO PRN PRN MDD 12 tab/24hr 06/13/18 [History] Ergocalciferol (VITAMIN D2) [Vitamin D2] 50,000 units PO FR 06/14/18 [History] LORazepam [Ativan] 0.5 mg PO TID PRN 30 Days #90 tablet 07/12/18 [Rx] OxyCODONE Immed Rel [Roxicodone 5 MG] 1 tab PO BID PRN 30 Days #60 tablet 07/12/18 [Rx] Ferrous Sulfate [Iron] 325 mg PO DAILY 07/16/18 [History] Maximiliano/Poly/Nataly OINT [Triple Antibiotic Ointment] 1 appl TP TID 30 Days #1 tube 07/17/18 [Rx] Allergies/Adverse Reactions: Allergy/AdvReac Type Severity Reaction Status Date / Time No Known Allergies Allergy Verified 07/16/18 19:37 Date of admission: 07/16/18 09:45 Primary care physician: Letitia Acevedo MD Consults: 07/16/18 11:11 Consult to Gastroenterology [CONS] Routine Consulting Provider: [facility] Reason for Consult: Bleeding from colostomy site. Symptomatic blood loss anemia Time Notified: 11:12 Call Completed: Yes - Constitutional Vitals: Temp Pulse Resp BP Pulse Ox 97.5 F L 72 16 93/52 100 07/17/18 07:01 07/17/18 07:01 07/17/18 07:01 07/17/18 07:01 07/17/18 07:01 Exam: GENERAL: Alert, moderate distress, cooperative EYES: PERRLA, EOMI EARS: External ears normal, canals clear OROPHARYNX: Lips, mucosa, and tongue normal. Teeth and gums normal. Oropharynx normal. NECK: No jugulovenous distention, No carotid bruits, Carotid pulse normal contour, Supple LUNGS: Lungs clear to auscultation, Good diaphragmatic excursion CARDIAC: Normal S1 and S2; no rubs, murmurs, or gallops ABDOMEN: Ileostomy site WNL. Stool present in bag EXTREMITIES: Extremities normal, no deformities, edema, clubbing or skin discoloration. Good capillary refill., No ulcers NEURO: Gait not tested Reflexes normal and symmetric. Sensation grossly intact, Cranial nerves II-XII intact PULSES: 2+ radial, 2+ carotid Rest of the exam is non contributory - Patient Status Disposition: Home, Self-Care Condition: Good - Discharge Instructions Follow Up With: Letitia Acevedo MD [Primary Care Provider] - (Web request sent. Office will call with date and time. Thank you) Anatoliy Foster MD [Partnered Physician] - (Web request sent. Office will call with date and time of appointment. Thank you)
--- NOTE | 2018-07-17 12:35 | Gastroenterology Consult Note ---
<Toribio Yoo Elmira - Last Filed: 07/17/18 12:32> Date of Encounter: 07/17/18 Time of Encounter: 10:30 - Assessment and plan (1) Symptomatic anemia Current Visit: No Status: Acute Assessment and plan: On admission Hgb 5.9 and SBP 70s. He responded to fluid bolus and was given 2 units PRBC. Hgb 6.7 this AM. Continue to monitor CBC and transfuse PRBC as needed. Small bowel enteroscopy completed yesterday by Dr. Foster; bleeding noted from external surface of ileostomy, s/p cauterization with APC. Use triple antibiotic ointment 3 times a day. (2) Alcoholic cirrhosis Current Visit: No Status: Acute Assessment and plan: MELD-Na 27, Child-Cota class B. AFP 5 on 06/14/2018. Liver US 06/15/2018 with cirrhosis with ascites, and cholelithiasis. Lifestyle Changes: 1. Total abstinence from alcohol including social drinking. 2. No smoking. 3. Gradual loss of weight. 4. Drink at least 3 cups of coffee due to its antioxidant effects in the liver, it reduces risk of HCC and advance fibrosis. 5. If needed, use less than 2 g/day of Tylenol (in divided doses). 6. Vaccination for Hep A, B, Pneumococcus if not already received and yearly influenza vaccination by PCP. 7. Avoid NSAIDS as can cause kidney damage. 8. Avoid benzodiazepines and other sedatives such as anti-histamines, narcotics etc. as can cause encephalopathy or confusion. 9. Take a late carbohydrate meal supplement as it reduces glucose production from protein breakdown and thus improves nutrition. 10. In cirrhosis, statins are safe to use and also improve portal hypertension and decrease risk of HCC. 11. Screening: Hepatocellular cancer screening: US of liver and AFP every 6 months Qualifiers: Ascites presence: without ascites Qualified Code(s): K70.30 - Alcoholic cirrhosis of liver without ascites - Time Spent With Patient Total time spent is greater than 50% in coordination of care (as documented) at patient's floor/unit and/or counseling patient: GI History of Present Illness - Data of Consult Patient: known to practice within the last 3 years Consult date: 07/17/18 Requesting Physician: Kelly Ross MD - Consult Narrative Reason for consult: Blood from ileostomy History of present illness: Mr. Broussard is a 73 year old male with PMHx of rectal cancer dx 05/07/2014 s/p ileostomy, COPD, cirrhosis, PA, who presented with bloody ileostomy output. He states he noticed blood "spurting" from his ileostomy while he was changing bags. On admission Hgb 5.9 and SBP 70s. He responded to fluid bolus and was given 2 units PRBC. Procedures: Enteroscopy 06/26/2018 Dr. Alatorre: Grade 1 varices, 2 cm hiatal hernia, portal hypertensive gastropathy. Colonoscopy 06/15/2017 Dr. Alatorre: Thick mucous plugs, diverticulosis. EGD 06/14/2017 Dr. Alatorre: Gastritis, mild Schatzki ring, possible Medina's NSAIDs: None Anticoagulation: None Past Med Surg Social Fam HX - Past Medical History Medical history: cancer, COPD, liver disease, myocardial infarction Additional medical history: colon cancer Psychiatric history: no psych history - Past Surgical History Surgical History: appendectomy, colostomy, tonsilectomy Additional surgical history: Patient reports previous eye surgery, abdominal surgery, - Social History Smoking Status: Current every day smoker Smokeless Tobacco Status: No Alcohol use: heavy, recent Drug use: none - Family History Brother Hx Family Cancer: Yes (brain) - Gastrointestinal Gastrointestinal: Present: as per HPI - Constitutional Constitutional: as per HPI - EENT Eyes: as per HPI Ears: Present: as per HPI Nose, mouth and throat: Present: as per HPI - Cardiovascular Cardiovascular ROS: Present: as per HPI - Respiratory Respiratory IM: Present: as per HPI - Genitourinary Genitourinary: Absent: change in color, Urinary frequency - Neurological ROS Neurological GI: Present: as per HPI - Hematologic/Lymphatic Hematologic/Lymphatic pediatric: Present: as per HPI - Musculoskeletal Musculoskeletal ROS GI: Present: as per HPI - Integumentary Integumentary GI: Present: as per HPI - Psychiatric ROS Psychiatric GI: Present: as per HPI - Endocrine Endocrine IM: Present: as per HPI - Constitutional Vitals: Temp Pulse Resp BP Pulse Ox 97.5 F L 72 16 93/52 100 07/17/18 07:01 07/17/18 07:01 07/17/18 07:01 07/17/18 07:01 07/17/18 07:01 General appearance: Present: cooperative, A&O X 3, no acute distress, answers questions appropriately - Head Head exam: Present: atraumatic, normocephalic - Eye Eye exam: Present: normal appearance, sclera anicteric - ENT ENT exam: Present: mucous membranes moist - Neck Neck exam general surgery: Present: normal inspection, trachea midline - Respiratory Respiratory exam: Present: decreased breath sounds, CTAB. Absent: rales, rhonchi - Cardiovascular Cardiovascular exam: Present: RRR, +S1, +S2 - GI/Abdominal GI/Abdominal exam: Present: soft, no peritoneal signs. Absent: distended, firm, guarding, tenderness Additional comments: ileostomy in place, with fecal material noted in bag. No blood noted. - Rectal Rectal exam: Present: deferred - Extremities Exam Extremities exam: Present: warm - Neurological Exam Neurological exam: Present: no focal deficits - Psychiatric Psychiatric exam: Present: normal affect, normal mood - Skin Skin exam: Present: dry, intact, normal color, warm Results - Labs CBC & Chem 7: 07/17/18 06:56 07/17/18 06:56 Labs: Last Result Calcium 8.1 mg/dL (8.6-10.3) L 07/17/18 06:56 Entire Visit Hgb 6.7 g/dL (12.9-16.9) L 07/17/18 06:56 Hct 21.4 % (37.5-50.1) L 07/17/18 06:56 Total Bilirubin 0.8 mg/dL (0.3-1.0) 07/17/18 06:56 AST 30 Units/L (13-39) 07/17/18 06:56 ALT 22 Units/L (7-52) 07/17/18 06:56 Consult Discharge Plan - Plan Referrals: Letitia Acevedo MD [Primary Care Provider] - (Web request sent. Office will call with date and time. Thank you) Anatoliy Foster MD [Partnered Physician] - (Web request sent. Office will call with date and time of appointment. Thank you) Prescriptions: Maximiliano/Poly/Nataly OINT [Triple Antibiotic Ointment] 1 appl TP TID 30 Days #1 tube <Anatoliy Foster - Last Filed: 07/17/18 17:55> Date of Encounter: 07/17/18 Time of Encounter: 18:00 - Time Spent With Patient Total time spent is greater than 50% in coordination of care (as documented) at patient's floor/unit and/or counseling patient: GI History of Present Illness - Data of Consult Requesting Physician: Kelly Ross MD - Consult Narrative History of present illness: Mr. Broussard is a 73 year old male - Constitutional Vitals: Temp Pulse Resp BP Pulse Ox 98.6 F 75 16 105/48 100 07/17/18 15:46 07/17/18 15:46 07/17/18 15:46 07/17/18 15:46 07/17/18 07:01 Results - Labs CBC & Chem 7: 07/17/18 06:56 07/17/18 06:56 Labs: Last Result Calcium 8.1 mg/dL (8.6-10.3) L 07/17/18 06:56 Entire Visit Hgb 6.7 g/dL (12.9-16.9) L 07/17/18 06:56 Hct 21.4 % (37.5-50.1) L 07/17/18 06:56 Total Bilirubin 0.8 mg/dL (0.3-1.0) 07/17/18 06:56 AST 30 Units/L (13-39) 07/17/18 06:56 ALT 22 Units/L (7-52) 07/17/18 06:56 - Attending Attestation I have personally performed a face to face evaluation on this patient. I have re viewed and agree with the care plan. History and Exam by me shows: Patient seen patient wanted to be [facility]. On examination: Alert and awake not in distress ileostomy site looks fine and the output is yellow with no blood. Status post-APC of 2 red spot on the external ileostomy site. Recommendation: Follow up with GI as an outpatient for ongoing care of his cirrhosis
[2018-07-17] MEDS ORDERED: Sodium Bicarbonate 50 MEQ/50 ML VIAL IVP ONE (15:18)
[2018-07-17] MEDS ORDERED: 0.9 % Sodium Chloride 250 ML ONE ×2 (15:22→18:38)
[2018-07-17 20:20] VITALS: BP 102/59
[2018-07-17 21:49] LABS: Hematocrit 25.9 % (37.5-50.1); Immature Granulocytes % 0.5 % (0-4); Lymphocytes % 7.2 %; Mean Corpuscular Volume 92.8 fL (83.0-100.0); Red Blood Count 2.79 M/mcL (4.19-5.50)
[2018-07-17 21:51] LABS: Basophils % 0.4 %; Eosinophils # 0.3 K/mcL (0.0-0.6); Eosinophils % 3.1 %; Hemoglobin 8.4 g/dL (12.9-16.9); Immature Platelets 2.5 % (1.1-6.1); Lymphocytes # 0.8 K/mcL (0.6-4.6); Mean Corpuscular HGB Conc 32.4 g/dL (31.6-35.5); Mean Corpuscular Hemoglobin 30.1 pg (28.0-33.3); Mean Platelet Volume 10.7 fL (9.4-12.4); Monocytes # 1.2 K/mcL (0.0-1.3); Monocytes % 10.9 %; Neutrophils # 8.4 K/mcL (1.6-8.9); Red Cell Distribution Width 18.8 % (11.5-14.5); Segmented Neutrophils % 77.9 %
[2018-07-17 21:52] LABS: Platelet Count 84 K/mcL (140-400)
== END 2018-07-17 23:00 | disposition home or self-care (01) ==
LOC: 3ANU
PROVIDERS: ADMIT Internal Medicine; ATTEND Internal Medicine

== ENCOUNTER 2018-07-18 06:20 | Observation (INO) ==
--- NOTE | 2018-07-18 06:37 | Emergency Department Note ---
Disposition Clinical Impression: Anemia, GI bleeding Disposition: Admitted As Inpatient Condition: Fair Instructions: Gastrointestinal Bleeding (ED) Referrals: NONE,PCP [Primary Care Provider] - Anatoliy Foster MD [Partnered Physician] - Forms: ED Satisfaction Letter GI Bleed HPI - General Chief complaint: ED GI Bleed Stated complaint: bleeding into colostomy Time Seen by Provider: 07/18/18 06:28 Source: patient Limitations: no limitations Nursing Notes Reviewed: Yes Vital Signs Reviewed: Yes - History of Present Illness HPI Narrative: 73-year-old male with history of cirrhosis, rectal cancer status of post ileastormy presents for bleeding in ileastomy bag. Pt reported the symptoms started the day before yesterday. He was admitted to hospital for hemoglobin 5.4. Pt was given 2 unites blood and repeated hemoglobin 8.4. Pt hand endoscope in hospital which didn't indicate active bleeding. Pt was discharged home and suggested to follow up with Dr. Foster. Pt stayed in hospital hallway due to no transportation. Pt noticed some blood in ileastomy bag this morning and decided to check back in. Pt denied dizziness or abdominal pain. Pt Subjective Complaint: other (dark blood in ileostomy bag) Consistency: constant Context: history of GI bleed, liver disease - Related Data Home Medications Medication Instructions Recorded Confirmed RX: Multivitamin/Iron/Folic Acid 1 tab PO DAILY 04/02/15 07/18/18 [Centrum Complete Multivit Tab] RX: Loperamide [Imodium] 4 mg PO PRN PRN MDD 12 tab/24hr 06/13/18 07/18/18 RX: Ergocalciferol (VITAMIN D2) 50,000 units PO FR 06/14/18 07/18/18 [Vitamin D2] RX: Ferrous Sulfate [Iron] 325 mg PO DAILY 07/16/18 07/18/18 Previous Rx's Medication Instructions Recorded RX: Pantoprazole Sodium [Protonix] 40 mg PO DAILY #90 tablet. 12/01/17 RX: Budesonide/Formoterol 160/4.5 2 puff IH Q12H #1 inhaler 02/07/18 [Symbicort 160/4.5] RX: Albuterol Sulfate [Ventolin 2 puff IH Q6H PRN #1 hfa.aer.ad 04/10/18 Hfa] RX: LORazepam [Ativan] 0.5 mg PO TID PRN 30 Days #90 07/12/18 tablet RX: OxyCODONE Immed Rel 1 tab PO BID PRN 30 Days #60 tablet 07/12/18 [Roxicodone 5 MG] RX: Maixmiliano/Poly/Nataly OINT [Triple 1 appl TP TID 30 Days #1 tube 07/17/18 Antibiotic Ointment] Allergies Allergy/AdvReac Type Severity Reaction Status Date / Time No Known Allergies Allergy Verified 07/16/18 19:37 Constitutional: Denies: fever, chills Eyes: Denies: eye pain ENT ED: Denies: ear pain Cardiovascular: Denies: chest pain Respiratory: Denies: cough Gastrointestinal: Reports: other (blood in ileostomy bag). Denies: abdominal pain Genitourinary: Denies: urgency Musculoskeletal: Denies: back pain Integumentary: Denies: rash Neurological: Denies: headache Psychiatric: Denies: anxiety Endocrine: Denies: fatigue Hematological/Lymphatic: Denies: easy bleeding Allergic/Immunologic: Denies: facial swelling Past Medical History - Past Medical History Medical history: Reports: cancer, COPD, liver disease, myocardial infarction Surgical history: Reports: appendectomy, colostomy, tonsilectomy Psychiatric history: Reports: no psych history - Social History Smoking Status: Current every day smoker Smokeless Tobacco Status: No Alcohol use: Reports: heavy, recent Drug use: Reports: none Physical Exam - General Limitations: no limitations General appearance: alert, in no apparent distress - Head Head exam: atraumatic - Eye Eye exam: Present: normal appearance - ENT ENT exam: normal exam - Neck Neck exam: Present: normal inspection - Chest Chest inspection: Present: normal inspection - Respiratory Respiratory exam: Present: normal lung sounds bilaterally - Cardiovascular Cardiovascular exam: Present: regular rate - Abdominal Exam Abdominal exam: Present: soft, Non-Tender, other (mild dark blood in ileostomy bag) - Extremities Exam Extremities exam: Present: normal inspection, full ROM. Absent: tenderness - Back Exam Back exam: Present: normal inspection, full ROM - Neurological Exam Neurological exam: Present: alert, oriented X3 - Psychiatric Psychiatric exam: Present: normal affect, normal mood - Skin Skin exam: Present: warm, intact Course Vital Signs Temperature 97.7 F 07/18/18 06:24 Pulse Rate 116 07/18/18 06:24 Respiratory Rate 18 07/18/18 06:24 Blood Pressure 99/62 07/18/18 06:24 O2 Sat by Pulse Oximetry 99 07/18/18 06:24 Temperature 97.7 F 07/18/18 06:24 Pulse Rate 104 07/18/18 09:54 Respiratory Rate 18 07/18/18 09:54 Blood Pressure 98/69 07/18/18 09:54 O2 Sat by Pulse Oximetry 99 07/18/18 09:54 Oxygen Delivery Oxygen Delivery Room Air GI Bleed - [facility] Narrative Medical decision making narrative: 73-year-old male with history of cirrhosis, chronic renal failure, rectal cancer status post ileostomy presents with blood in ileostomy bag. Patient was admitted to the hospital yesterday and got 2 units blood transfusion. Patient was discharged home with the hemoglobin level 8.4. Patient was suggested to follow up with Dr. Foster outpatient. Patient denied abdominal pain or dizziness. Patient stayed in hospital hallway after being discharged. He checked back in this morning. Small amount of dark red blood in eating stormy bag. Repeat labs today: Hemoglobin 8.7, other labs in baseline. Contacted Dr. Foster's office. They will call patient for appointment shortly. director of radio services contacted for transplantation. Patient will be discharged home. 08:20 am, prior discharge, pt complained of mild dizziness when sitting on wheel chair. Pt has full bag (ileostomy ) of blood. repeat CBC 8.3. ammonia, lipase slightly elevated. Concerns of active GI bleeding. Dr. Foster consulted. Dr. Foster will look at endoscopy this afternoon. Pt will be admitted to hospital with GI consult. Abdominal CT: no acute change. Dr. Herrera has seen the patient and ag samira the above plan. - Lab Data Lab results reviewed: Yes I reviewed the patient's lab results. Result diagrams: 07/18/18 09:16 07/18/18 07:23 Lab Results 07/18/18 07/18/18 07/18/18 Range/Units 07:23 07:23 09:16 WBC 12.3 H 16.9 H (4.3-11.1) K/mcL RBC 2.92 L 2.81 L (4.19-5.50) M/mcL Hgb 8.7 L 8.3 L (12.9-16.9) g/dL Hct 27.1 L 26.4 L (37.5-50.1) % MCV 92.8 94.0 (83.0-100.0) fL MCH 29.8 29.5 (28.0-33.3) pg MCHC 32.1 31.4 L (31.6-35.5) g/dL RDW 20.1 H 20.3 H (11.5-14.5) % Plt Count 102 L 135 L (140-400) K/mcL MPV 10.3 10.7 (9.4-12.4) fL Immature Gran % 0.9 0.7 (0-4) % Seg Neutrophils % 81.0 82.1 % Lymphocytes % 5.3 5.7 % Monocytes % 10.1 9.3 % Eosinophils % 2.5 1.8 % Basophils % 0.2 0.4 % Neutrophils # 10.0 H 13.9 H (1.6-8.9) K/mcL Lymphocytes # 0.7 1.0 (0.6-4.6) K/mcL Monocytes # 1.2 1.6 H (0.0-1.3) K/mcL Eosinophils # 0.3 0.3 (0.0-0.6) K/mcL Basophils # 0.0 0.1 (0.0-0.2) K/mcL Sodium 135 L (136-145) mEq/L Potassium 4.8 (3.5-5.1) mEq/L Chloride 115 H (98-107) mEq/L Carbon Dioxide 13 L (23-29) mEq/L BUN 35 H (8-23) mg/dL Creatinine 2.81 H (0.70-1.30) mg/dL Est GFR ( Amer) 27 L (> 60) Est GFR (Non-Af Amer) 22 L (> 60) BUN/Creatinine Ratio 12 (6-26) Glucose 138 H (70-105) mg/dL Calculated Osmolality 290 (280-300) Calcium 8.7 (8.6-10.3) mg/dL Ammonia (16-53) mcmol/L Lipase (11-82) Units/L 07/18/18 07/18/18 Range/Units 09:16 09:16 WBC (4.3-11.1) K/mcL RBC (4.19-5.50) M/mcL Hgb (12.9-16.9) g/dL Hct (37.5-50.1) % MCV (83.0-100.0) fL MCH (28.0-33.3) pg MCHC (31.6-35.5) g/dL RDW (11.5-14.5) % Plt Count (140-400) K/mcL MPV (9.4-12.4) fL Immature Gran % (0-4) % Seg Neutrophils % % Lymphocytes % % Monocytes % % Eosinophils % % Basophils % % Neutrophils # (1.6-8.9) K/mcL Lymphocytes # (0.6-4.6) K/mcL Monocytes # (0.0-1.3) K/mcL Eosinophils # (0.0-0.6) K/mcL Basophils # (0.0-0.2) K/mcL Sodium (136-145) mEq/L Potassium (3.5-5.1) mEq/L Chloride (98-107) mEq/L Carbon Dioxide (23-29) mEq/L BUN (8-23) mg/dL Creatinine (0.70-1.30) mg/dL Est GFR ( Amer) (> 60) Est GFR (Non-Af Amer) (> 60) BUN/Creatinine Ratio (6-26) Glucose (70-105) mg/dL Calculated Osmolality (280-300) Calcium (8.6-10.3) mg/dL Ammonia 68 H (16-53) mcmol/L Lipase 187 H (11-82) Units/L - Radiology Data Radiology results reviewed: Yes I reviewed the patient's radiology results. COMPARISON: Abdominal/pelvic CT, 06/25/2018 and 10/15/2017 HISTORY: ORDERING SYSTEM PROVIDED HISTORY: gi bleeding Rectal bleeding for 5 weeks. Initial evaluation. History of colon cancer with chemotherapy and radiation therapy. FINDINGS: Lower Chest: The visualized lung bases reveal minimal right basilar atelectasis. The visualized cardiac and posterior mediastinal structures are unremarkable. Organs: Within the abdomen, the unenhanced pancreas and adrenal glands are within normal limits. Small stones noted in the dependent portion of the gallbladder lumen. The liver is small with a nodular contour compatible with cirrhosis. The spleen is not enlarged measuring 11.9 cm in length. There is a small amount of perihepatic and perisplenic ascites. The unenhanced kidneys are unremarkable. No hydronephrosis, nephrolithiasis or ureterolithiasis is identified. GI/Bowel: Distal small bowel ostomy noted in the right lower quadrant. The unopacified small bowel is otherwise unremarkable. No free air is identified. There is evidence of previous partial sigmoid resection with rectosigmoid anastomosis in the pelvis. Presacral soft tissue fullness again noted near the site of surgery which could be related to scarring and/or tumor. On image 171, this soft tissue measures approximately 2.1 cm in AP dimension by 5.1 cm in transverse dimension. Colonic diverticulosis is noted without focal inflammatory changes to suggest diverticulitis. Minor haziness of the mesenteric fat appears stable from the previous exam. Retroperitoneum/Peritoneum: No obvious lymphadenopathy is seen although evaluation is limited by the lack of IV contrast. The abdominal aorta appears normal in caliber with minor atherosclerotic calcifications. Pelvis: Within the pelvis, the urinary bladder is grossly unremarkable. No gross abnormality of the prostate or seminal vesicles is identified. Anterior pelvic wall midline ventral hernia again noted containing a loop of distal small bowel without evidence of bowel incarceration or obstruction. Bones/Soft Tissues: No acute osseous abnormalities are identified. There are degenerative changes affecting the hips, SI joints and spine. No dominant lytic or sclerotic bone lesions are identified. CT/CT abd pelvis wo no iv no oral IMPRESSION: 1. History of previous partial sigmoid resection with rectosigmoid anastomosis in the pelvis. Residual presacral soft tissue fullness appears stable since 2018 which may be related to post treatment changes. No abscess or other postoperative complication identified. 2. Cirrhosis with a small amount of perihepatic and perisplenic ascites. 3. Cholelithiasis. 4. Colonic diverticulosis without evidence of diverticulitis. 5. Right lower quadrant ileostomy. 6. Anterior pelvic wall ventral hernia containing fat and a loop of the distal small bowel without evidence of bowel incarceration or obstruction. 7. No convincing evidence of intra-abdominal or intrapelvic metastatic disease on this unenhanced study. D/ / Lcoo Blue MD / Loco Blue MD Interpreting Provider: Loco Blue MD Attestation Statement - Attestation Attestation: I, Zac Herrera DO have provided [id number] time during the care of this patient. Detailed review the presentation, symptoms, medical history were discussed and reviewed with the advanced practice provider Adam Cabrera PA-C/CASE RESOLUTION SPECIALIST. Medical intervention labs and imaging studies were reviewed in detail. See full documentation of physical exam and course of care in the advanced practice provider's note. I agree with the determined course of care, medical intervention and disposition put forth by the advanced practice provider. See below documentation for changes or alterations in documentation.
[2018-07-18 07:37] LABS: Basophils % 0.2 %; Eosinophils # 0.3 K/mcL (0.0-0.6); Eosinophils % 2.5 %; Hematocrit 27.1 % (37.5-50.1); Hemoglobin 8.7 g/dL (12.9-16.9); Immature Granulocytes % 0.9 % (0-4); Lymphocytes # 0.7 K/mcL (0.6-4.6); Lymphocytes % 5.3 %; Mean Corpuscular HGB Conc 32.1 g/dL (31.6-35.5); Mean Corpuscular Hemoglobin 29.8 pg (28.0-33.3); Mean Corpuscular Volume 92.8 fL (83.0-100.0); Mean Platelet Volume 10.3 fL (9.4-12.4); Monocytes # 1.2 K/mcL (0.0-1.3); Monocytes % 10.1 %; Platelet Count 102 K/mcL (140-400); Red Blood Count 2.92 M/mcL (4.19-5.50); Red Cell Distribution Width 20.1 % (11.5-14.5)
[2018-07-18 07:55] LABS: Calcium 8.7 mg/dL (8.6-10.3); Potassium 4.8 mEq/L (3.5-5.1)
[2018-07-18] MEDS ORDERED: 0.9 % Sodium Chloride 500 ML IVC ONE (08:43)
[2018-07-18 09:30] LABS: Eosinophils % 1.8 %; Hematocrit 26.4 % (37.5-50.1); Hemoglobin 8.3 g/dL (12.9-16.9); Immature Granulocytes % 0.7 % (0-4); Lymphocytes % 5.7 %; Mean Corpuscular HGB Conc 31.4 g/dL (31.6-35.5); Mean Corpuscular Hemoglobin 29.5 pg (28.0-33.3); Mean Platelet Volume 10.7 fL (9.4-12.4); Monocytes % 9.3 %; Platelet Count 135 K/mcL (140-400); Red Blood Count 2.81 M/mcL (4.19-5.50); Red Cell Distribution Width 20.3 % (11.5-14.5); Segmented Neutrophils % 82.1 %
[2018-07-18 09:31] LABS: Basophils # 0.1 K/mcL (0.0-0.2); Basophils % 0.4 %; Eosinophils # 0.3 K/mcL (0.0-0.6); Monocytes # 1.6 K/mcL (0.0-1.3); Neutrophils # 13.9 K/mcL (1.6-8.9)
--- NOTE | 2018-07-18 10:39 | Emergency Department Note ---
Disposition Clinical Impression: Anemia Qualifiers: Anemia type: iron deficiency Iron deficiency anemia type: chronic blood loss Qualified Code(s): D50.0 - Iron deficiency anemia secondary to blood loss (chronic) GI bleeding Qualifiers: GI bleed type/associated pathology: unspecified gastrointestinal hemorrhage type Qualified Code(s): K92.2 - Gastrointestinal hemorrhage, unspecified Disposition: Admitted As Inpatient Condition: Fair Instructions: Gastrointestinal Bleeding (ED) Reasons to Return/Additional Instructions: 1. Follow-up with Dr. Foster 2. Return to ER immediately for any concerns Referrals: NONE,PCP [Primary Care Provider] - Anatoliy Foster MD [Partnered Physician] - Forms: ED Satisfaction Letter Time of Disposition: 10:49 General Adult HPI - General Chief complaint: ED GI Bleed Stated complaint: bleeding into colostomy Time Seen by Provider: 07/18/18 06:28 Source: patient Limitations: no limitations - History of Present Illness Pain Scale: 0 - Related Data Home Medications Medication Instructions Recorded Confirmed Multivitamin/Iron/Folic Acid 1 tab PO DAILY 04/02/15 07/16/18 [Centrum Complete Multivit Tab] Loperamide [Imodium] 4 mg PO PRN PRN MDD 12 tab/24hr 06/13/18 07/16/18 Ergocalciferol (VITAMIN D2) 50,000 units PO FR 06/14/18 07/16/18 [Vitamin D2] Ferrous Sulfate [Iron] 325 mg PO DAILY 07/16/18 07/16/18 Previous Rx's Medication Instructions Recorded Pantoprazole Sodium [Protonix] 40 mg PO DAILY #90 tablet.dr 12/01/17 Budesonide/Formoterol 160/4.5 2 puff IH Q12H #1 inhaler 02/07/18 [Symbicort 160/4.5] Albuterol Sulfate [Ventolin Hfa] 2 puff IH Q6H PRN #1 hfa.aer.ad 04/10/18 LORazepam [Ativan] 0.5 mg PO TID PRN 30 Days #90 07/12/18 tablet OxyCODONE Immed Rel [Roxicodone 5 1 tab PO BID PRN 30 Days #60 tablet 07/12/18 MG] Maximiliano/Poly/Nataly OINT [Triple 1 appl TP TID 30 Days #1 tube 07/17/18 Antibiotic Ointment] Allergies Allergy/AdvReac Type Severity Reaction Status Date / Time No Known Allergies Allergy Verified 07/16/18 19:37 Constitutional: Denies: fever, chills Eyes: Denies: eye pain ENT ED: Denies: ear pain Cardiovascular: Denies: chest pain Respiratory: Denies: cough Gastrointestinal: Reports: other (blood in ileostomy bag). Denies: abdominal pain Genitourinary: Denies: urgency Musculoskeletal: Denies: back pain Integumentary: Denies: rash Neurological: Denies: headache Psychiatric: Denies: anxiety Endocrine: Denies: fatigue Hematological/Lymphatic: Denies: easy bleeding Allergic/Immunologic: Denies: facial swelling Past Medical History - Past Medical History Medical history: Reports: cancer, COPD, liver disease, myocardial infarction Surgical history: Reports: appendectomy, colostomy, tonsilectomy Psychiatric history: Reports: no psych history - Social History Smoking Status: Current every day smoker Smokeless Tobacco Status: No Alcohol use: Reports: heavy, recent Drug use: Reports: none Physical Exam - General Limitations: no limitations General appearance: alert, in no apparent distress Course Vital Signs Temperature 97.7 F 07/18/18 06:24 Pulse Rate 116 07/18/18 06:24 Respiratory Rate 18 07/18/18 06:24 Blood Pressure 99/62 07/18/18 06:24 O2 Sat by Pulse Oximetry 99 07/18/18 06:24 Temperature 97.7 F 07/18/18 06:24 Pulse Rate 104 07/18/18 09:54 Respiratory Rate 18 07/18/18 09:54 Blood Pressure 98/69 07/18/18 09:54 O2 Sat by Pulse Oximetry 99 07/18/18 09:54 Oxygen Delivery Oxygen Delivery Room Air Medical Decision Making - Lab Data Result diagrams: 07/18/18 09:16 07/18/18 07:23 Lab Results 07/18/18 07/18/18 07/18/18 Range/Units 07:23 07:23 09:16 WBC 12.3 H 16.9 H (4.3-11.1) K/mcL RBC 2.92 L 2.81 L (4.19-5.50) M/mcL Hgb 8.7 L 8.3 L (12.9-16.9) g/dL Hct 27.1 L 26.4 L (37.5-50.1) % MCV 92.8 94.0 (83.0-100.0) fL MCH 29.8 29.5 (28.0-33.3) pg MCHC 32.1 31.4 L (31.6-35.5) g/dL RDW 20.1 H 20.3 H (11.5-14.5) % Plt Count 102 L 135 L (140-400) K/mcL MPV 10.3 10.7 (9.4-12.4) fL Immature Gran % 0.9 0.7 (0-4) % Seg Neutrophils % 81.0 82.1 % Lymphocytes % 5.3 5.7 % Monocytes % 10.1 9.3 % Eosinophils % 2.5 1.8 % Basophils % 0.2 0.4 % Neutrophils # 10.0 H 13.9 H (1.6-8.9) K/mcL Lymphocytes # 0.7 1.0 (0.6-4.6) K/mcL Monocytes # 1.2 1.6 H (0.0-1.3) K/mcL Eosinophils # 0.3 0.3 (0.0-0.6) K/mcL Basophils # 0.0 0.1 (0.0-0.2) K/mcL Sodium 135 L (136-145) mEq/L Potassium 4.8 (3.5-5.1) mEq/L Chloride 115 H (98-107) mEq/L Carbon Dioxide 13 L (23-29) mEq/L BUN 35 H (8-23) mg/dL Creatinine 2.81 H (0.70-1.30) mg/dL Est GFR ( Amer) 27 L (> 60) Est GFR (Non-Af Amer) 22 L (> 60) BUN/Creatinine Ratio 12 (6-26) Glucose 138 H (70-105) mg/dL Calculated Osmolality 290 (280-300) Calcium 8.7 (8.6-10.3) mg/dL Ammonia (16-53) mcmol/L Lipase (11-82) Units/L 07/18/18 07/18/18 Range/Units 09:16 09:16 WBC (4.3-11.1) K/mcL RBC (4.19-5.50) M/mcL Hgb (12.9-16.9) g/dL Hct (37.5-50.1) % MCV (83.0-100.0) fL MCH (28.0-33.3) pg MCHC (31.6-35.5) g/dL RDW (11.5-14.5) % Plt Count (140-400) K/mcL MPV (9.4-12.4) fL Immature Gran % (0-4) % Seg Neutrophils % % Lymphocytes % % Monocytes % % Eosinophils % % Basophils % % Neutrophils # (1.6-8.9) K/mcL Lymphocytes # (0.6-4.6) K/mcL Monocytes # (0.0-1.3) K/mcL Eosinophils # (0.0-0.6) K/mcL Basophils # (0.0-0.2) K/mcL Sodium (136-145) mEq/L Potassium (3.5-5.1) mEq/L Chloride (98-107) mEq/L Carbon Dioxide (23-29) mEq/L BUN (8-23) mg/dL Creatinine (0.70-1.30) mg/dL Est GFR ( Amer) (> 60) Est GFR (Non-Af Amer) (> 60) BUN/Creatinine Ratio (6-26) Glucose (70-105) mg/dL Calculated Osmolality (280-300) Calcium (8.6-10.3) mg/dL Ammonia 68 H (16-53) mcmol/L Lipase 187 H (11-82) Units/L Attestation Statement - Attestation Attestation: I, Zac Herrera DO have provided [id number] time during the care of this patient. Detailed review the presentation, symptoms, medical history were discussed and reviewed with the advanced practice provider Adam Cabrera PA-C/[employer] MACHINE OPERATOR. Medical intervention labs and imaging studies were reviewed in detail. See full documentation of physical exam and course of care in the advanced practice pr dusty's note. I agree with the determined course of care, medical intervention and disposition put forth by the advanced practice provider. See below documentation for changes or alterations in documentation. 73-year-old male presents emergency room for evaluation of blood from his ostomy site. Patient was just discharged from the hospital last night and waited in the hallway the emergency room until this morning to be seen. He was unable to be transported back to his home. Patient denies any other falls trauma or injury. Denies any nausea vomiting or diarrhea. Denies any fevers or chills. Does not have any recent medical issues or concerns. Patient had a detailed wor kup completed in the hospital setting and was discharged home. Patient is hemodynamic was stable on presentation. Labs appear to be unremarkable this point. His ostomy is filled with blood. There is no visible signs of trauma to the ostomy site itself this time. Repeat CT imaging the abdomen along with remainder of symptomatically control were completed. Consultation was placed onto the on-call dental office coordinator who recommended admission for monitoring. Hospitalist was contacted and admission process will be established. Otherwise the patient is clinically stable despite findings are concerning for acute GI bleed of persistent GI bleed. Patient will be monitored here in the emergency room to the admission process is completed. Lungs are clear heart is regular abdomen is soft no guarding or rigidity. Ostomy was evaluated. No signs or rash or lesions noted on skin evaluation. Patient is neurologically intact and speaking in full sentences. Patient will be treated symptomatically and then monitor here until admission is established. See detailed documentation of the physical exam, medical intervention, medical decision-making and disposition in the advanced practice provider's note. No critical care provider the patient's treatment course at this time.
[2018-07-18] MEDS ORDERED: Naloxone 0.4 MG/ML INJ IVP PRN (10:46)
[2018-07-18] MEDS ORDERED: traMADol 50 MG TABLET PO PRN (10:46)
[2018-07-18] MEDS ORDERED: Ondansetron 4 MG/2 ML VIAL IVP PRN (10:52)
[2018-07-18] MEDS ORDERED: *HR* Dextrose 50 % in Water (Syg) 50 ML SYRINGE IVP PRN (10:53)
[2018-07-18] MEDS ORDERED: D5% in Water 1,000 ML IVC PRN (10:53)
[2018-07-18] MEDS ORDERED: Dextrose Gel 15 GM/37.5 ML TUBE PO PRN ×2 (10:53)
[2018-07-18] MEDS: Piperacillin/Tazobactam 3.375 GM in 0.9 % Sodium Chloride Mini Bag 100 ML IVPB SCH ×2 (11:41→17:03)
[2018-07-18] MEDS: D5% in 0.9% NACL 1,000 ML IVC SCH ×2 (11:41→20:10)
[2018-07-18] MEDS: Pantoprazole 40 MG VIAL IVP SCH ×2 (11:41→18:00)
[2018-07-18] MEDS: Lactulose Oral Soln 20 GM/30 ML UDC PO SCH ×2 (11:42→20:09)
[2018-07-18] MEDS: Insulin LISPRO 300 UNITS/3 ML VIAL SQ SCH ×2 (12:16→17:10)
--- NOTE | 2018-07-18 12:26 | Internal Med History&Physical ---
Date of Encounter: 07/18/18 Time of Encounter: 12:21 Internal Medicine - H&P: HPI Chief complaint: GI bleed Plans for Post Hospital Care: Home History of present illness: Mr. Broussard is a 73 year old male history of rectal cancer status post ileostomy, cirrhosis, chronic kidney disease stage III who presented with bloody ileostomy output. Patient was discharged from the hospital yesterday after being admitted due to bleeding from the ileostomy bag, patient underwent small bowel enteroscopy showing bleeding from the external surface of the ileostomy which was cauterized with APC. Patient reported he was discharged yesterday but he did not leave the building. Today he went back to the ED due to persistent oozing blood on the ileostomy, reported he changed his ostomy bag as was full of blood. Denies chest pain or shortness of breath, but reported light headedness. Past Med Surg Social Fam HX - Past Medical History Medical history: cancer, COPD, liver disease, myocardial infarction Additional medical history: colon cancer Psychiatric history: no psych history - Past Surgical History Surgical History: appendectomy, colostomy, tonsilectomy Additional surgical history: Patient reports previous eye surgery, abdominal surgery, - Social History Smoking Status: Current every day smoker Smokeless Tobacco Status: No Alcohol use: heavy, recent Drug use: none - Family History Brother Hx Family Cancer: Yes (brain) Internal Medicine - H&P: Meds Multivitamin/Iron/Folic Acid [Centrum Complete Multivit Tab] 1 tab PO DAILY 04/02/15 [History] Pantoprazole Sodium [Protonix] 40 mg PO DAILY #90 tablet. 12/01/17 [Rx] Budesonide/Formoterol 160/4.5 [Symbicort 160/4.5] 2 puff IH Q12H #1 inhaler 02/07/18 [Rx] Albuterol Sulfate [Ventolin Hfa] 2 puff IH Q6H PRN #1 hfa.aer.ad 04/10/18 [Rx] Loperamide [Imodium] 4 mg PO PRN PRN MDD 12 tab/24hr 06/13/18 [History] Ergocalciferol (VITAMIN D2) [Vitamin D2] 50,000 units PO FR 06/14/18 [History] LORazepam [Ativan] 0.5 mg PO TID PRN 30 Days #90 tablet 07/12/18 [Rx] OxyCODONE Immed Rel [Roxicodone 5 MG] 1 tab PO BID PRN 30 Days #60 tablet 07/12/18 [Rx] Ferrous Sulfate [Iron] 325 mg PO DAILY 07/16/18 [History] Maximiliano/Poly/Nataly OINT [Triple Antibiotic Ointment] 1 appl TP TID 30 Days #1 tube 07/17/18 [Rx] Allergy/AdvReac Type Severity Reaction Status Date / Time No Known Allergies Allergy Verified 07/16/18 19:37 All Systems PM: A 10-system review of systems was performed and is negative for pertinent findings except as documented above in the HPI. - Constitutional Constitutional: no chills, no fever(s), no weakness - EENT Eyes: no change in vision Nose, mouth and throat: no mouth pain - Cardiovascular Cardiovascular ROS IM: no chest pain, no edema, no lightheadedness, no palpitations, no paroxysmal nocturnal dyspnea - Respiratory Respiratory: no cough, no change in phlegm color - Gastrointestinal Gastrointestinal: other (bright red blood in the ostomy bag. ), no dysphagia, no vomiting - Genitourinary Genitourinary ROS male: no dysuria, no nocturia - Musculoskeletal Musculoskeletal ROS IM: no arthralgias, no numbness - Integumentary Integumentary IM: no erythema - Neurological Neurological ROS: no headache(s) - Psychiatric Psychiatric: no anxiety, no irritability - Hematologic/Lymphatic Hematologic/Lymphatic: no lymphadenopathy - Allergic/Immunologic Allergic/Immunologic: no GI upset with certain foods Additional comments: Rest of a 10 review of system negative. - Constitutional Vitals: Temp Pulse Resp BP Pulse Ox 97.5 F L 97 16 91/57 100 07/18/18 11:38 07/18/18 11:38 07/18/18 11:38 07/18/18 11:38 07/18/18 11:38 Exam: Vitals: Reviewed General: Alert and oriented x4. In mild distress due to bleeding from the ostomy site Cardiovascular: RRR, normal S1 & S2, no rubs, murmurs or gallops. No JVD. Pulse regular. Lungs: CTA b/l, no wheezes or crackles. Abdomen: Soft, non-tender, no rigidity. bleeding/oozing from ostomy site. Extremities: No deformity, no edema or tenderness, no joint swelling or clubbing . Neurological: Normal cognition and motor skills. Pulses:Carotid and radial pulses normal +2. Rest of the physical exam is non contributory Internal Med - H&P Results - Labs CBC & Chem 7: 07/18/18 09:16 07/18/18 07:23 Labs: Short CBC 07/18/18 07/18/18 Range/Units 07:23 09:16 WBC 12.3 H 16.9 H (4.3-11.1) K/mcL Hgb 8.7 L 8.3 L (12.9-16.9) g/dL Hct 27.1 L 26.4 L (37.5-50.1) % Plt Count 102 L 135 L (140-400) K/mcL Neutrophils # 10.0 H 13.9 H (1.6-8.9) K/mcL BMP 07/18/18 07:23 Sodium 135 L Potassium 4.8 Chloride 115 H Carbon Dioxide 13 L BUN 35 H Creatinine 2.81 H Glucose 138 H Calcium 8.7 - Impressions ITS Impressions Abdomen/Pelvis CT 07/18/18 08:41 IMPRESSION: 1. History of previous partial sigmoid resection with rectosigmoid anastomosis in the pelvis. Residual presacral soft tissue fullness appears stable since 2018 which may be related to post treatment changes. No abscess or other postoperative complication identified. 2. Cirrhosis with a small amount of perihepatic and perisplenic ascites. 3. Cholelithiasis. 4. Colonic diverticulosis without evidence of diverticulitis. 5. Right lower quadrant ileostomy. 6. Anterior pelvic wall ventral hernia containing fat and a loop of the distal small bowel without evidence of bowel incarceration or obstruction. 7. No convincing evidence of intra-abdominal or intrapelvic metastatic disease on this unenhanced study. D/ / Loco Blue MD / Loco Blue MD Interpreting Provider: Loco Blue MD - Assessment and Plan (1) GI bleeding Current Visit: Yes Status: Acute Assessment and plan: Patient bleeding from the ostomy site. Plan serial CBC Q6HRs surgery and GI consulted NPO started on D5NS @100mls/hr type and screen. will transfuse per protocol PPIs and anti-emetics Accu-checks Q6HRs plus lispro low dose sliding scale Qualifiers: GI bleed type/associated pathology: unspecified gastrointestinal hemorrhage type Qualified Code(s): K92.2 - Gastrointestinal hemorrhage, unspecified (2) Thrombocytopenia Current Visit: Yes Status: Chronic Assessment and plan: due to liver cirrhosis. (3) Anemia Current Visit: Yes Status: Chronic Assessment and plan: patient recently transfused 2 units of PRBCs due to GI bleeding serial cbc ordered will transfuse per protocol ferrous sulfate 325mg/PO daily Qualifiers: Anemia type: iron deficiency Iron deficiency anemia type: chronic blood loss Qualified Code(s): D50.0 - Iron deficiency anemia secondary to blood loss (chronic) (4) DVT prophylaxis Current Visit: No Status: Chronic Assessment and plan: no chemical DVT prophylaxis due to bleeding mechanical DVT prophylaxis with plexi-pulses (5) Leukocytosis, unspecified Current Visit: No Status: Chronic Assessment and plan: unclear etiology. will start patient empirically on IV antibiotics. patient BP running in the low 90s lactic acid and blood culture ordered. Qualifiers: Leukocytosis type: leukemoid reaction Qualified Code(s): D72.823 - Leukemoid reaction (6) COPD (chronic obstructive pulmonary disease) Current Visit: No Status: Chronic Assessment and plan: not on acute exacerbation. started on brochodilators Q4RT PRN. Qualifiers: COPD type: unspecified COPD Qualified Code(s): J44.9 - Chronic obstructive pulmonary disease, unspecified (7) Cirrhosis of liver Current Visit: No Status: Chronic Assessment and plan: patient with elevated ammonia level with no neurological abnormalities. started on lactulose 20g/PO daily. Qualifiers: Hepatic cirrhosis type: alcoholic cirrhosis Ascites presence: without ascites Qualified Code(s): K70.30 - Alcoholic cirrhosis of liver without ascites (8) Acute renal failure superimposed on stage 3 chronic kidney disease Current Visit: No Status: Acute Assessment and plan: nephroprotective strategies. patient started on gentle IV hydration. will reassess kidney function in the morning. Qualifiers: Acute renal failure type: unspecified Qualified Code(s): N17.9 - Acute kidney failure, unspecified; N18.3 - Chronic kidney disease, stage 3 (moderate) - Time Spent With Patient Total time spent is greater than 50% in coordination of care (as documented) at patient's floor/unit and/or counseling patient: Greater than 35 minutes (45)
[2018-07-18] MEDS ORDERED: Ipratropium/Albuterol Neb 3 ML IH PRN (12:30)
[2018-07-18 13:52] LABS: Basophils % 0.2 %; Eosinophils # 0.1 K/mcL (0.0-0.6); Eosinophils % 0.8 %; Hematocrit 21.8 % (37.5-50.1); Immature Granulocytes % 0.8 % (0-4); Lymphocytes % 5.2 %; Mean Corpuscular HGB Conc 32.1 g/dL (31.6-35.5); Mean Corpuscular Hemoglobin 30.2 pg (28.0-33.3); Mean Platelet Volume 11.3 fL (9.4-12.4); Monocytes # 1.3 K/mcL (0.0-1.3); Monocytes % 7.3 %; Neutrophils # 15.8 K/mcL (1.6-8.9); Platelet Count 135 K/mcL (140-400); Red Blood Count 2.32 M/mcL (4.19-5.50); Red Cell Distribution Width 20.4 % (11.5-14.5); Segmented Neutrophils % 85.7 %
[2018-07-18 14:02] LABS: INR 1.6
[2018-07-18 14:05] LABS: Activated Partial Thrombo Time 54.9 Seconds (26.0-36.0)
--- NOTE | 2018-07-18 14:40 | Event Note ---
Date of Encounter: 07/18/18 Time of Encounter: 12:30 Patient with blood noted in ileostomy bag. Small bowel enteroscopy completed 07/16/[address] Foster; bleeding noted from external surface of ileostomy, s/p cauterization with APC. Dr. Foster evaluated patient and bleeding noted from ostomy. Dr. Foster spoke with Dr. Villagran who is to place suture in ostomy.
--- NOTE | 2018-07-18 19:48 | AcuteCare Surgery Consult Note ---
Date of Encounter: 07/18/18 Time of Encounter: 19:45 Assessment and Plan (1) Acute bleeding Current Visit: Yes Status: Acute 73M h/o rectal cancer h/o cirrhosis no with bleeding from varix near the ostomy site; controlled with figure of 8, interrupted vicryl suture; trend h/h GI consult for management of liver disease general surgery will sign off; History of Present Illness Consult date: 07/18/18 Reason for consult: other (bleeding from ostomy) History of present illness: Mr. Broussard is a 73 year old male history of rectal cancer status post ileostomy, cirrhosis, chronic kidney disease stage III who presented with bloody ileostomy output. The patient had a bleeding from a single source like a fountain of blood. no hemodynamic changes. Surgery was called for immediate control of bleeding. Of note I asked the patient repeatedly if he had any liver disease. he states that he is unaware. The bleeding appears to be from a varix around the ostomy. Past Med Surg Social Fam HX - Past Medical History Medical history: cancer, COPD, liver disease, myocardial infarction Additional medical history: colon cancer Psychiatric history: no psych history - Past Surgical History Surgical History: appendectomy, colostomy, tonsilectomy Additional surgical history: Patient reports previous eye surgery, abdominal surgery, - Social History Smoking Status: Current every day smoker Smokeless Tobacco Status: No Alcohol use: heavy, recent Drug use: none - Family History Brother Hx Family Cancer: Yes (brain) Medications and Allergies Multivitamin/Iron/Folic Acid [Centrum Complete Multivit Tab] 1 tab PO DAILY 04/02/15 [History] Pantoprazole Sodium [Protonix] 40 mg PO DAILY #90 tablet. 12/01/17 [Rx] Budesonide/Formoterol 160/4.5 [Symbicort 160/4.5] 2 puff IH Q12H #1 inhaler 02/07/18 [Rx] Albuterol Sulfate [Ventolin Hfa] 2 puff IH Q6H PRN #1 hfa.aer.ad 04/10/18 [Rx] Loperamide [Imodium] 4 mg PO PRN PRN MDD 12 tab/24hr 06/13/18 [History] Ergocalciferol (VITAMIN D2) [Vitamin D2] 50,000 units PO FR 06/14/18 [History] LORazepam [Ativan] 0.5 mg PO TID PRN 30 Days #90 tablet 07/12/18 [Rx] OxyCODONE Immed Rel [Roxicodone 5 MG] 1 tab PO BID PRN 30 Days #60 tablet 07/12/18 [Rx] Ferrous Sulfate [Iron] 325 mg PO DAILY 07/16/18 [History] Maximiliano/Poly/Nataly OINT [Triple Antibiotic Ointment] 1 appl TP TID 30 Days #1 tube 07/17/18 [Rx] Allergy/AdvReac Type Severity Reaction Status Date / Time No Known Allergies Allergy Verified 07/16/18 19:37 Review of Systems All systems PM: 12 point ROS negative besides HPI findings General Surgery Exam Initial Vital Signs Temp Pulse Resp BP Pulse Ox 97.7 F 116 18 99/62 99 07/18/18 06:24 07/18/18 06:24 07/18/18 06:24 07/18/18 06:24 07/18/18 06:24 - General physical appearance no distress - Eyes normal ocular movement - ENT normocephalic - Neck no lymphadectomy - Respiratory normal expansion, normal respiratory effort - Cardiovascular Cardiovascular exam: Present: RRR - Abdomen Abdomen general surgery: Present: soft, non tender - Rectum Rectum: Present: other (ostomy; bleeding from a single sites; spurting; dark red) - Integumentary Integumentary general surgery: Present: warm and dry - Neurologic Present: CN 2-12 grossly intact - Musculoskeletal Present: normal posture - Psychiatric Psychiatric general surgery: Present: A&Ox3 Exam Initial Vital Signs Temp Pulse Resp BP Pulse Ox 97.7 F 116 18 99/62 99 07/18/18 06:24 07/18/18 06:24 07/18/18 06:24 07/18/18 06:24 07/18/18 06:24 Results - Labs 07/18/18 13:31 07/18/18 07:23 Abnormal lab results WBC 18.4 K/mcL (4.3-11.1) H 07/18/18 13:31 RBC 2.32 M/mcL (4.19-5.50) L 07/18/18 13:31 Hgb 7.0 g/dL (12.9-16.9) L 07/18/18 13:31 Hct 21.8 % (37.5-50.1) L 07/18/18 13:31 RDW 20.4 % (11.5-14.5) H 07/18/18 13:31 Plt Count 135 K/mcL (140-400) L 07/18/18 13:31 Neutrophils # 15.8 K/mcL (1.6-8.9) H 07/18/18 13:31 PT 18.0 Seconds (9.4-12.1) H 07/18/18 13:31 APTT 54.9 Seconds (26.0-36.0) H 07/18/18 13:31 Sodium 135 mEq/L (136-145) L 07/18/18 07:23 Chloride 115 mEq/L (98-107) H 07/18/18 07:23 Carbon Dioxide 13 mEq/L (23-29) L 07/18/18 07:23 BUN 35 mg/dL (8-23) H 07/18/18 07:23 Creatinine 2.81 mg/dL (0.70-1.30) H 07/18/18 07:23 Est GFR ( Amer) 27 (> 60) L 07/18/18 07:23 Est GFR (Non-Af Amer) 22 (> 60) L 07/18/18 07:23 Glucose 138 mg/dL (70-105) H 07/18/18 07:23 POC Glucose 179 mg/dL (70-99) H 07/18/18 12:14 Ammonia 68 mcmol/L (16-53) H 07/18/18 09:16 Lipase 187 Units/L (11-82) H 07/18/18 09:16 Diabetes panel 07/18/18 Range/Units 07:23 Sodium 135 L (136-145) mEq/L Potassium 4.8 (3.5-5.1) mEq/L Chloride 115 H (98-107) mEq/L Carbon Dioxide 13 L (23-29) mEq/L BUN 35 H (8-23) mg/dL Creatinine 2.81 H (0.70-1.30) mg/dL Glucose 138 H (70-105) mg/dL Calcium 8.7 (8.6-10.3) mg/dL Calcium panel 07/18/18 Range/Units 07:23 Calcium 8.7 (8.6-10.3) mg/dL Pituitary panel 07/18/18 Range/Units 07:23 Sodium 135 L (136-145) mEq/L Potassium 4.8 (3.5-5.1) mEq/L Chloride 115 H (98-107) mEq/L Carbon Dioxide 13 L (23-29) mEq/L BUN 35 H (8-23) mg/dL Creatinine 2.81 H (0.70-1.30) mg/dL Glucose 138 H (70-105) mg/dL Calcium 8.7 (8.6-10.3) mg/dL Adrenal panel 07/18/18 Range/Units 07:23 Sodium 135 L (136-145) mEq/L Potassium 4.8 (3.5-5.1) mEq/L Chloride 115 H (98-107) mEq/L Carbon Dioxide 13 L (23-29) mEq/L BUN 35 H (8-23) mg/dL Creatinine 2.81 H (0.70-1.30) mg/dL Glucose 138 H (70-105) mg/dL Calcium 8.7 (8.6-10.3) mg/dL All other labs normal. Consult Discharge Plan - Plan Referrals: NONE,PCP [Primary Care Provider] -
[2018-07-18 19:57] LABS: Eosinophils % 1.5 %; Red Cell Distribution Width 20.1 % (11.5-14.5)
[2018-07-18 19:58] LABS: Basophils % 0.2 %; Eosinophils # 0.3 K/mcL (0.0-0.6); Hematocrit 17.1 % (37.5-50.1); Immature Granulocytes % 1.2 % (0-4); Lymphocytes % 6.3 %; Mean Corpuscular HGB Conc 32.7 g/dL (31.6-35.5); Mean Corpuscular Hemoglobin 30.4 pg (28.0-33.3); Mean Corpuscular Volume 92.9 fL (83.0-100.0); Mean Platelet Volume 11.6 fL (9.4-12.4); Monocytes # 1.9 K/mcL (0.0-1.3); Monocytes % 11.4 %; Platelet Count 104 K/mcL (140-400); Red Blood Count 1.84 M/mcL (4.19-5.50); Segmented Neutrophils % 79.4 %
[2018-07-18 20:14] LABS: Hemoglobin 5.6 g/dL (12.9-16.9)
[2018-07-19] MEDS ORDERED: 0.9 % Sodium Chloride 250 ML ONE ×2 (01:14→05:05)
[2018-07-19] MEDS: Piperacillin/Tazobactam 3.375 GM in 0.9 % Sodium Chloride Mini Bag 100 ML IVPB SCH ×2 (02:23→10:30)
[2018-07-19] MEDS: Pantoprazole 40 MG VIAL IVP SCH (05:30)
--- NOTE | 2018-07-19 08:57 | Internal Med Progress Note ---
<Dayanara Edmond - Last Filed: 07/19/18 11:49> Hospitalist Progress Note - Encounter Date of Encounter: 07/19/18 Time of Encounter: 09:18 - Subjective Interval History: Pt sitting up in bed. Pt is frustrated to answer more questions, often using foul language. Pt denies any CP or abdominal pain. Per nursing, pt refused to allow nursing to help clean him and his bed overnight. - Exam Vitals: Temp Pulse Resp BP Pulse Ox 97.7 F 95 16 95/55 99 07/19/18 08:11 07/19/18 08:11 07/19/18 08:11 07/19/18 08:11 07/19/18 08:11 Exam: General: Alert and oriented to person place in time. Sitting up in bed. Appears unkempt. Malodorous. ENT: MMM. mild scleral icterus Cardiovascular: RRR, normal S1 & S2, no rubs, murmurs or gallops. No JVD. Pulse regular. Lungs: CTA b/l, no wheezes or crackles. Abdomen: Soft, non-tender, no rigidity. osteomy bag filled with dark liquid Extremities: No deformity, no edema or tenderness, no joint swelling or clubbing. Skin: warm and dry. 2 cm oval lesion on dorsal aspect of R wrist, central area of granulation tissue, surrounded by area of dry dark crusting Neurological: Moves all extremities Psych: Irritable, frustrated mood, congruent affect. - Assessment and Plan (1) GI bleeding Current Visit: Yes Status: Acute Assessment and Plan: Patient bleeding from the ostomy site. H/H decreased significantly: In ED hgb was 8.7; last hgb was 5.6 at 1929 yesterday evening Received 2uPRBC Surgery: suggest trend h/h and GI consult for management of liver dz. Secured varice at opening of osteomy with sutures has signed off Plan : appears to be external bleeding serial CBC Q6HRs Transfuse per protocol GI consulted Cardiac diet started on D5NS @100mls/hr Change IV PPI to oral (2) Anemia Current Visit: Yes Status: Chronic Assessment and Plan: chronic due to iron deficiency acute due to GIB Plan: -Fe replacement: ferrous sulfate 325mg/PO daily -see above for addressing acute anemia loss due to GIB (3) Thrombocytopenia Current Visit: Yes Status: Chronic Assessment and Plan: Chronic, stable 2/2 liver disease Continue to monitor (4) Acute renal failure superimposed on stage 3 chronic kidney disease Current Visit: No Status: Acute Assessment and Plan: Cr elevated at 2.81 on admission. Plan: Continue to monitor; repeat Cr level Gentle IV rehydration (5) Leukocytosis, unspecified Current Visit: No Status: Chronic Assessment and Plan: likely 2/2 stress reaction/blood loss 16.4 upon admission Plan: repeat CBC Check UA to r/o infection placed on empirc zoysn consider discontinuing pending repeat CBC and r/o infectious process pt remains afebrile blood cx from 07/16 still prelim (6) Cirrhosis of liver Current Visit: No Status: Chronic Assessment and Plan: Chronic,s table NH4 68, although this is below his previous levels Pt is A&O to person place and time Plan; -discontinue lactulose due to concern for increase output pt has no altered MS to suggest hepatic encephalopthy NH4 lower than in previous admissions (7) COPD (chronic obstructive pulmonary disease) Current Visit: No Status: Chronic Assessment and Plan: Chronic Plan: Bronchodilators PRN q4 (8) DVT prophylaxis Current Visit: No Status: Chronic Assessment and Plan: No chemical DVT PPX due to coagulopathy 2/2 liver dz Plan: SCDs (9) Rectal cancer Current Visit: No Status: Chronic Assessment and Plan: Chronic, s/p ileostomy (10) Wound of skin Current Visit: Yes Status: Acute Assessment and Plan: Dorsal aspect R wrist Plan: -consult wound care - Time Spent with Patient Total time spent is greater than 50% in coordination of care (as documented) at patient's floor/unit and/or counseling patient: Internal Medicine: Result - Labs CBC & Chem 7: 07/18/18 19:29 07/18/18 07:23 Labs: Short CBC 07/18/18 07/18/18 07/18/18 Range/Units 09:16 13:31 19:29 WBC 16.9 H 18.4 H 16.4 H (4.3-11.1) K/mcL Hgb 8.3 L 7.0 L 5.6 L* (12.9-16.9) g/dL Hct 26.4 L 21.8 L 17.1 L (37.5-50.1) % Plt Count 135 L 135 L 104 L (140-400) K/mcL Neutrophils # 13.9 H 15.8 H 13.0 H (1.6-8.9) K/mcL - ABG Interpretation ABG results: PT/INR, D-dimer PT 18.0 Seconds (9.4-12.1) H 07/18/18 13:31 - Impressions Impressions Abdomen/Pelvis CT 07/18/18 08:41 IMPRESSION: 1. History of previous partial sigmoid resection with rectosigmoid anastomosis in the pelvis. Residual presacral soft tissue fullness appears stable since 2018 which may be related to post treatment changes. No abscess or other postoperative complication identified. 2. Cirrhosis with a small amount of perihepatic and perisplenic ascites. 3. Cholelithiasis. 4. Colonic diverticulosis without evidence of diverticulitis. 5. Right lower quadrant ileostomy. 6. Anterior pelvic wall ventral hernia containing fat and a loop of the distal small bowel without evidence of bowel incarceration or obstruction. 7. No convincing evidence of intra-abdominal or intrapelvic metastatic disease on this unenhanced study. D/ / Loco Blue MD / Loco Blue MD Interpreting Provider: Loco Blue MD Consult Discharge Plan - Plan Referrals: NONE,PCP [Primary Care Provider] - <Lili Mullen - Last Filed: 07/19/18 16:21> Hospitalist Progress Note - Encounter Date of Encounter: 07/19/18 - Exam Vitals: Temp Pulse Resp BP Pulse Ox 98 F 73 16 98/58 98 07/19/18 11:15 07/19/18 11:15 07/19/18 11:15 07/19/18 11:15 07/19/18 11:15 - Assessment and Plan (1) COPD (chronic obstructive pulmonary disease) Current Visit: No Status: Chronic (2) DVT prophylaxis Current Visit: No Status: Chronic (3) Cirrhosis of liver Current Visit: No Status: Chronic (4) Anemia Current Visit: Yes Status: Chronic (5) Acute renal failure superimposed on stage 3 chronic kidney disease Current Visit: No Status: Acute (6) Leukocytosis, unspecified Current Visit: No Status: Chronic (7) GI bleeding Current Visit: Yes Status: Acute (8) Thrombocytopenia Current Visit: Yes Status: Chronic - Time Spent with Patient Total time spent is greater than 50% in coordination of care (as documented) at patient's floor/unit and/or counseling patient: Internal Medicine: Result - Labs CBC & Chem 7: 07/19/18 11:32 07/19/18 11:32 Labs: Short CBC 07/18/18 07/18/18 07/19/18 Range/Units 13:31 19:29 11:32 WBC 18.4 H 16.4 H (4.3-11.1) K/mcL Hgb 7.0 L 5.6 L* 7.3 L D (12.9-16.9) g/dL Hct 21.8 L 17.1 L 22.2 L (37.5-50.1) % Plt Count 135 L 104 L (140-400) K/mcL Neutrophils # 15.8 H 13.0 H (1.6-8.9) K/mcL - ABG Interpretation ABG results: PT/INR, D-dimer PT 18.0 Seconds (9.4-12.1) H 07/18/18 13:31 - Attending Attestation The history, physical exam, and medical decision making was performed by medical student Feli either while I was physically present and actively involved or I personally re-performed the exam and medical decision making. I have verified the accuracy of the medical student's documentation with regards to the history, physical exam findings, and medical decision making. Mr Broussard was discharged from [facility] and re presented with bleeding from ostomy and acute on chronic anemia awake, not pleasant, gives varying histories of what occurred prompting him to return to ED within this interaction. He denies any bleeding since suture placed by Dr Villagran. no cp, pressure, sob, presyncope. Has liquid watery output from ostomy and states it is at baseline. Denies confusion and is alert and oriented answering all questions when he is being cooperative. Agreeable to repeat hgb checks/lab check today once educated on why they are needed. No fevers, chills, n/v, abd pain, dysuria, hematuria, cough or sputum gen- alert, awake,appears stated age, disheveled eyes- pupils equal round, mild scleral icterus cv- reg rate and rhythm, normal s1,s2, no murmurs appreciated, no le edema lungs- ctabl, no wheezing, rhonchi or crackles, normal resp effort on room air abd- soft, non tender, non distended, + bs, ostomy without bleeding noted, pascal watery liquid in bag, no blood skin- no pallor, no jaundice, healing wound right forearm with granulation tissue in center and scab around parameter, no drainage or bruising neuro- AAOx3 GIB from varix near ostomy site -appreciate surgery seeing him and placing sutures, now controlled -GI aware he is here, no eval required by their team and they are available if there are any changes- enteroscopy 07/16 showed external bleeding from ileostomy that was cauterized--they defered to surgery for suturig this admission -can dc IV PPI and resume home PPI - ok to feed Acute on Chronic anemia 2/2 gi blood loss as above -s/p 2 units prbcs--repeat hgb up to 7.3 from 5.6 -serial h/hs -cont home iron Leukocytosis, present last admission without clearly identified infectious cause was treated with empiric abx on last admit and then dx with leukemoid reaction WBC 12.3-18.4 this admission, most recent pending, afebrile and ros negative 10.8 on dc 07/17 -check UA, CXR from 07/16 negative and no sxs on ros, bl cxs obtained on admit -empiric abx started by admitting provider, will repeat cbc today and possibly dc zosyn pending result Chronic Thrombocytopenia, stable Chronic Liver Cirrhosis, stable, not decompensated- ammonia level actually lower than his baseline, given he appears to have high ostomy output, will dc lactulose started by admitter in effort to avoid dehydration in this non decompensated stable state, fu with gi outpt Elevated Lipase, chronic- lower than baseline Hypotension to Low normotensive BPs at baseline- stable, related to cirrhosis CAD hx- on no home meds, stable VENANCIO on CKD III Chronic low bicarb, stable, no anion gap - s/p IVF bolus on admit, repeat creat pending, variable creats outpt vary from about 1.5-2 mostly, avoid nephrotoxins, likely will require further IVFs vte ppx scds <Dayanara Edmond - Last Filed: 07/19/18 11:49> (1) GI bleeding Qualifiers: GI bleed type/associated pathology: unspecified gastrointestinal hemorrhage type Qualified Code(s): K92.2 - Gastrointestinal hemorrhage, unspecified (2) Anemia Qualifiers: Anemia type: iron deficiency Iron deficiency anemia type: chronic blood loss Qualified Code(s): D50.0 - Iron deficiency anemia secondary to blood loss (chronic) (4) Acute renal failure superimposed on stage 3 chronic kidney disease Qualifiers: Acute renal failure type: unspecified Qualified Code(s): N17.9 - Acute kidney failure, unspecified; N18.3 - Chronic kidney disease, stage 3 (moderate) (5) Leukocytosis, unspecified Qualifiers: Leukocytosis type: leukemoid reaction Qualified Code(s): D72.823 - Leukemoid reaction (6) Cirrhosis of liver Qualifiers: Hepatic cirrhosis type: alcoholic cirrhosis Ascites presence: without ascites Qualified Code(s): K70.30 - Alcoholic cirrhosis of liver without ascites (7) COPD (chronic obstructive pulmonary disease) Qualifiers: COPD type: unspecified COPD Qualified Code(s): J44.9 - Chronic obstructive pulmonary disease, unspecified <Lili Mullen - Last Filed: 07/19/18 16:21> (1) COPD (chronic obstructive pulmonary disease) Qualifiers: COPD type: unspecified COPD Qualified Code(s): J44.9 - Chronic obstructive pulmonary disease, unspecified (3) Cirrhosis of liver Qualifiers: Hepatic cirrhosis type: alcoholic cirrhosis Ascites presence: without ascites Qualified Code(s): K70.30 - Alcoholic cirrhosis of liver without ascites (4) Anemia Qualifiers: Anemia type: iron deficiency Iron deficiency anemia type: chronic blood loss Qualified Code(s): D50.0 - Iron deficiency anemia secondary to blood loss (chronic) (5) Acute renal failure superimposed on stage 3 chronic kidney disease Qualifiers: Acute renal failure type: unspecified Qualified Code(s): N17.9 - Acute kidney failure, unspecified; N18.3 - Chronic kidney disease, stage 3 (moderate) (6) Leukocytosis, unspecified Qualifiers: Leukocytosis type: leukemoid reaction Qualified Code(s): D72.823 - Leukemoid reaction (7) GI bleeding Qualifiers: GI bleed type/associated pathology: unspecified gastrointestinal hemorrhage type Qualified Code(s): K92.2 - Gastrointestinal hemorrhage, unspecified
[2018-07-19] MEDS: Lactulose Oral Soln 20 GM/30 ML UDC PO SCH (10:30)
[2018-07-19 11:43] LABS: Hematocrit 22.2 % (37.5-50.1)
[2018-07-19 11:55] LABS: Hemoglobin 7.3 g/dL (12.9-16.9)
[2018-07-19 12:05] LABS: Calcium 7.9 mg/dL (8.6-10.3); Magnesium 1.7 mg/dL (1.6-2.6); Phosphorous 4.1 mg/dL (2.7-4.5); Potassium 4.1 mEq/L (3.5-5.1)
[2018-07-19 12:06] LABS: Calcium 7.9 mg/dL (8.6-10.3); Potassium 4.1 mEq/L (3.5-5.1)
[2018-07-19 12:11] LABS: Basophils % 0.2 %
[2018-07-19 12:13] LABS: Eosinophils # 0.4 K/mcL (0.0-0.6); Immature Granulocytes % 0.8 % (0-4); Immature Platelets 2.7 % (1.1-6.1); Lymphocytes # 0.8 K/mcL (0.6-4.6); Lymphocytes % 6.6 %; Mean Corpuscular HGB Conc 32.2 g/dL (31.6-35.5); Mean Corpuscular Volume 93.4 fL (83.0-100.0); Mean Platelet Volume 10.9 fL (9.4-12.4); Monocytes # 1.2 K/mcL (0.0-1.3); Neutrophils # 9.8 K/mcL (1.6-8.9); Platelet Count 80 K/mcL (140-400); Red Blood Count 2.43 M/mcL (4.19-5.50); Red Cell Distribution Width 17.7 % (11.5-14.5); Segmented Neutrophils % 79.4 %
[2018-07-19] MEDS: D5% in 0.9% NACL 1,000 ML IVC SCH (14:17)
[2018-07-19] MEDS: 0.9 % Sodium Chloride 1,000 ML IVC SCH (16:16)
[2018-07-19 17:14] LABS: Hemoglobin 7.6 g/dL (12.9-16.9)
[2018-07-19 21:40] LABS: Bilirubin,Urine Negative (Negative); Blood,Urine Negative (Negative); Clarity,Urine Clear (Clear); Color,Urine Yellow (Yellow); Glucose,Urine (UA) Normal (Normal); Ketones,Urine Trace mg/dL (Negative); Leukocyte Esterase,Urine Negative (Negative); Nitrite,Urine Negative (Negative); Protein,Urine Trace mg/dL (Neg-Trace); Specific Gravity,Urine 1.021 (1.010-1.025); Urobilinogen,Urine Normal (Normal)
[2018-07-19] MEDS: Budesonide/Formoterol 160/4.5 1 PUFF INH IH SCH (22:33)
[2018-07-19 22:49] LABS: Creatinine,Urine 175 mg/dL; Sodium, Urine < 10.0 mEq/L
[2018-07-20] MEDS: 0.9 % Sodium Chloride 1,000 ML IVC SCH ×2 (06:10→20:11)
--- NOTE | 2018-07-20 08:06 | Internal Med Progress Note ---
<Dayanara Edmond - Last Filed: 07/20/18 13:10> Hospitalist Progress Note - Encounter Date of Encounter: 07/20/18 Time of Encounter: 09:45 - Subjective Interval History: Pt sitting up eating breakfast. Irritable, would like to know when he can leave. Denies new complaints - Exam Vitals: Temp Pulse Resp BP Pulse Ox 97.5 F L 67 16 98/59 97 07/20/18 07:28 07/20/18 07:28 07/20/18 07:28 07/20/18 07:28 07/20/18 07:28 Exam: General: Alert and oriented to person place in time. Sitting up in bed. Appears unkempt. Malodorous. ENT: MMM. mild scleral icterus Cardiovascular: RRR, normal S1 & S2, no rubs, murmurs or gallops. No JVD. Pulse regular. Lungs: CTA b/l, no wheezes or crackles. Abdomen: Soft, non-tender, no rigidity. osteomy bag filled with dark liquid Extremities: No deformity, no edema or tenderness, no joint swelling or clubbi ng. Skin: warm and dry. 2 cm oval lesion on dorsal aspect of R wrist, improved central area of new scabbing Neurological: Moves all extremities Psych: Irritable, frustrated mood, congruent affect. - Assessment and Plan (1) GI bleeding Current Visit: Yes Status: Acute Assessment and Plan: 2/2 varix near osteomy site surgery placed sutures, bleeding has stopped Hgb remains stable at 7.2 GI deferred to surgery for suturing - enteroscopy 07/16 showed external bleeding from ileostomy that was cauterized Plan: Continue oral PPI Continue oral feeds (2) Acute renal failure superimposed on stage 3 chronic kidney disease Current Visit: No Status: Acute Assessment and Plan: Chronic low bicarb, stable, no anion gap Renal u/s showed evidence of cysitis, however UA shows no signs of infection and pt denies sx Cr decreased to 2.97 today Plan: will d/c abx due to no s/s urine infection continue to monitor for leukocytosis continue IVF to improve Cr avoid nephrotoxins (3) Anemia Current Visit: Yes Status: Chronic Assessment and Plan: 2/2 varix near osteomy. h/h stable see above for plan (4) Thrombocytopenia Current Visit: Yes Status: Chronic Assessment and Plan: stable, chronic (5) Leukocytosis, unspecified Current Visit: No Status: Chronic Assessment and Plan: Improved abx discontinued Plan: Continue to monitor s/p discontinuation of abx (6) DVT prophylaxis Current Visit: No Status: Chronic Assessment and Plan: No chemical ppx due to chronic liver disease induce coagulopathy Plan SCDs (7) Wound of skin Current Visit: Yes Status: Acute Assessment and Plan: Wound has improved Continue to monitor and provide supportive care - Time Spent with Patient Total time spent is greater than 50% in coordination of care (as documented) at patient's floor/unit and/or counseling patient: Internal Medicine: Result - Labs CBC & Chem 7: 07/20/18 10:46 07/20/18 10:46 Labs: Short CBC 07/19/18 07/19/18 Range/Units 11:32 17:04 WBC 12.3 H (4.3-11.1) K/mcL Hgb 7.3 L D 7.6 L (12.9-16.9) g/dL Hct 22.2 L 23.0 L (37.5-50.1) % Plt Count 80 L (140-400) K/mcL Neutrophils # 9.8 H (1.6-8.9) K/mcL BMP 07/19/18 07/19/18 11:32 11:32 Sodium 133 L 134 L Potassium 4.1 4.1 Chloride 114 H 115 H Carbon Dioxide 14 L 14 L BUN 36 H 35 H Creatinine 3.40 H 3.42 H Glucose 175 H 175 H Calcium 7.9 L 7.9 L Urine 07/19/18 Range/Units 21:15 Urine Color Yellow (Yellow) Urine Clarity Clear (Clear) Urine pH 6.0 (5.0-8.0) pH Units Ur Specific [place] 1.021 (1.010-1.025) Urine Protein Trace (Neg-Trace) mg/dL Urine Glucose (UA) Normal (Normal) mg/dL - ABG Interpretation ABG results: PT/INR, D-dimer PT 18.0 Seconds (9.4-12.1) H 07/18/18 13:31 - Impressions Impressions Retroperitoneum Ultrasound 07/19/18 20:45 IMPRESSION: No evidence of obstructive uropathy. Circumferential urinary bladder wall thickening correlates with recent CT and could indicate cystitis. Incidental abdominal ascites and cirrhotic liver morphology, also correlating with recent CT findings. D/ / Akira Fernandez / Akira Fernandez Interpreting Provider: Akira Fernandez Consult Discharge Plan - Plan Referrals: NONE,PCP [Primary Care Provider] - <Lili Mullen - Last Filed: 07/20/18 17:23> Hospitalist Progress Note - Encounter Date of Encounter: 07/20/18 - Exam Vitals: Temp Pulse Resp BP Pulse Ox 97.8 F 83 18 102/62 98 07/20/18 14:08 07/20/18 14:08 07/20/18 14:08 07/20/18 14:08 07/20/18 14:08 - Assessment and Plan (1) COPD (chronic obstructive pulmonary disease) Current Visit: No Status: Chronic (2) DVT prophylaxis Current Visit: No Status: Chronic (3) Cirrhosis of liver Current Visit: No Status: Chronic (4) Anemia Current Visit: Yes Status: Chronic (5) Acute renal failure superimposed on stage 3 chronic kidney disease Current Visit: No Status: Acute (6) Leukocytosis, unspecified Current Visit: No Status: Chronic (7) GI bleeding Current Visit: Yes Status: Acute (8) Thrombocytopenia Current Visit: Yes Status: Chronic - Time Spent with Patient Total time spent is greater than 50% in coordination of care (as documented) at patient's floor/unit and/or counseling patient: Internal Medicine: Result - Labs CBC & Chem 7: 07/20/18 10:46 07/20/18 10:46 Labs: Short CBC 07/19/18 07/20/18 Range/Units 17:04 10:46 WBC 11.0 (4.3-11.1) K/mcL Hgb 7.6 L 7.2 L (12.9-16.9) g/dL Hct 23.0 L 21.7 L (37.5-50.1) % Plt Count 80 L (140-400) K/mcL Neutrophils # 8.7 (1.6-8.9) K/mcL BMP 07/20/18 10:46 Sodium 134 L Potassium 4.1 Chloride 111 H Carbon Dioxide 14 L BUN 30 H Creatinine 2.97 H Glucose 142 H Calcium 7.8 L Urine 07/19/18 Range/Units 21:15 Urine Color Yellow (Yellow) Urine Clarity Clear (Clear) Urine pH 6.0 (5.0-8.0) pH Units Ur Specific [place] 1.021 (1.010-1.025) Urine Protein Trace (Neg-Trace) mg/dL Urine Glucose (UA) Normal (Normal) mg/dL - ABG Interpretation ABG results: PT/INR, D-dimer PT 18.0 Seconds (9.4-12.1) H 07/18/18 13:31 - Impressions Impressions Retroperitoneum Ultrasound 07/19/18 20:45 IMPRESSION: No evidence of obstructive uropathy. Circumferential urinary bladder wall thickening correlates with recent CT and could indicate cystitis. Incidental abdominal ascites and cirrhotic liver morphology, also correlating with recent CT findings. D/ / Akira Fernandez / Akira Fernandez Interpreting Provider: Akira Fernandez - Attending Attestation The history, physical exam, and medical decision making was performed by medical student Feli either while I was physically present and actively involved or I personally re-performed the exam and medical decision making. I have verified the accuracy of the medical student's documentation with regards to the history, physical exam findings, and medical decision making. Mr Broussard was discharged from [facility] and re presented with bleeding from ostomy and acute on chronic anemia awake, eating breakfast, no bleeding from stoma, no cp, sob or lightheadedness. denies bladder pain, dysuria, hematuria, change in urination gen- alert, awake,appears stated age, disheveled cv- reg rate and rhythm, normal s1,s2, no murmurs appreciated, no le edema lungs- ctabl, no wheezing, rhonchi or crackles, normal resp effort on room air abd- soft, non tender, non distended, + bs, ostomy without bleeding noted, skin- no pallor, no jaundice, neuro- AAOx3 GIB from varix near ostomy site -appreciate surgery seeing him and placing sutures, now controlled -GI aware he is here, no eval required by their team and they are available if there are any changes- enteroscopy 07/16 showed external bleeding from ileostomy that was cauterized--they defered to surgery for suturig this admission -home PPI Acute on Chronic anemia 2/2 gi blood loss as above, stable s/p prbcs -s/p 2 units prbcs -serial h/hs stable -cont home iron Leukocytosis, present last admission without clearly identified infectious cause, down trending off abx was treated with empiric abx on last admit and then dx with leukemoid reaction WBC 12.3-18.4 this admission, afebrile and ros negative 10.8 on dc 07/17 -UA neg, CXR from 07/16 negative and no sxs on ros, bl cxs obtained on admit renal US showed bladder thickening but UA and ros are not c/w cystitis -cont to monitor Chronic Thrombocytopenia, stable Chronic Liver Cirrhosis, stable, not decompensated- ammonia level actually lower than his baseline, given he appears to have high ostomy output,no lactulose in effort to avoid dehydration in this non decompensated stable state, fu with gi outpt Elevated Lipase, chronic- lower than baseline Hypotension to Low normotensive BPs at baseline- stable, related to cirrhosis CAD hx- on no home meds, stable VENANCIO on CKD III Chronic low bicarb, stable, no anion gap - s/p IVF bolus on admit, downtrending, cont ivfs, variable creats outpt vary from about 1.5-2 mostly, avoid nephrotoxins, cont to trend vte ppx scds <Dayanara Edmond - Last Filed: 07/20/18 13:10> (1) GI bleeding Qualifiers: GI bleed type/associated pathology: unspecified gastrointestinal hemorrhage type Qualified Code(s): K92.2 - Gastrointestinal hemorrhage, unspecified (2) Acute renal failure superimposed on stage 3 chronic kidney disease Qualifiers: Acute renal failure type: unspecified Qualified Code(s): N17.9 - Acute kidney failure, unspecified; N18.3 - Chronic kidney disease, stage 3 (moderate) (3) Anemia Qualifiers: Anemia type: iron deficiency Iron deficiency anemia type: chronic blood loss Qualified Code(s): D50.0 - Iron deficiency anemia secondary to blood loss (chronic) (5) Leukocytosis, unspecified Qualifiers: Leukocytosis type: leukemoid reaction Qualified Code(s): D72.823 - Leukemoid reaction <Lili Mullen - Last Filed: 07/20/18 17:23> (1) COPD (chronic obstructive pulmonary disease) Qualifiers: COPD type: unspecified COPD Qualified Code(s): J44.9 - Chronic obstructive pulmonary disease, unspecified (3) Cirrhosis of liver Qualifiers: Hepatic cirrhosis type: alcoholic cirrhosis Ascites presence: without ascites Qualified Code(s): K70.30 - Alcoholic cirrhosis of liver without ascites (4) Anemia Qualifiers: Anemia type: iron deficiency Iron deficiency anemia type: chronic blood loss Qualified Code(s): D50.0 - Iron deficiency anemia secondary to blood loss (chronic) (5) Acute renal failure superimposed on stage 3 chronic kidney disease Qualifiers: Acute renal failure type: unspecified Qualified Code(s): N17.9 - Acute kidney failure, unspecified; N18.3 - Chronic kidney disease, stage 3 (moderate) (6) Leukocytosis, unspecified Qualifiers: Leukocytosis type: leukemoid reaction Qualified Code(s): D72.823 - Leukemoid reaction (7) GI bleeding Qualifiers: GI bleed type/associated pathology: unspecified gastrointestinal hemorrhage type Qualified Code(s): K92.2 - Gastrointestinal hemorrhage, unspecified
[2018-07-20] MEDS: Budesonide/Formoterol 160/4.5 1 PUFF INH IH SCH ×2 (10:33→20:13)
[2018-07-20 11:09] LABS: Basophils % 0.3 %; Eosinophils # 0.3 K/mcL (0.0-0.6); Hematocrit 21.7 % (37.5-50.1); Hemoglobin 7.2 g/dL (12.9-16.9); Immature Granulocytes % 0.5 % (0-4); Lymphocytes # 0.7 K/mcL (0.6-4.6); Mean Corpuscular HGB Conc 33.2 g/dL (31.6-35.5); Mean Corpuscular Hemoglobin 30.4 pg (28.0-33.3); Mean Corpuscular Volume 91.6 fL (83.0-100.0); Mean Platelet Volume 10.2 fL (9.4-12.4); Monocytes # 1.2 K/mcL (0.0-1.3); Red Blood Count 2.37 M/mcL (4.19-5.50); Red Cell Distribution Width 18.8 % (11.5-14.5); Segmented Neutrophils % 79.2 %
[2018-07-20 11:11] LABS: Neutrophils # 8.7 K/mcL (1.6-8.9); Platelet Count 80 K/mcL (140-400)
[2018-07-20 11:12] LABS: Platelet Estimate Decreased (Normal)
[2018-07-20 11:27] LABS: Calcium 7.8 mg/dL (8.6-10.3); Potassium 4.1 mEq/L (3.5-5.1)
[2018-07-20] MEDS: *HR* HYDROcodone/Acet 5/325 mg TABLET PO PRN (11:58)
[2018-07-20] MEDS ORDERED: *HR* LORazepam 0.5 MG TABLET PO PRN (14:48)
[2018-07-20] MEDS ORDERED: *HR* OxyCODONE Immed Rel 5 MG TABLET PO PRN (14:48)
[2018-07-20] MEDS ORDERED: Budesonide/Formoterol 160/4.5 1 PUFF INH IH SCH (15:00)
[2018-07-20] MEDS: Neosporin OINT 15 GM TUBE TP SCH ×2 (16:16→20:11)
[2018-07-21 05:16] LABS: Basophils % 0.2 %; Eosinophils # 0.2 K/mcL (0.0-0.6); Hematocrit 22.6 % (37.5-50.1); Hemoglobin 7.3 g/dL (12.9-16.9); Immature Granulocytes % 0.4 % (0-4); Lymphocytes # 0.6 K/mcL (0.6-4.6); Mean Corpuscular HGB Conc 32.3 g/dL (31.6-35.5); Mean Platelet Volume 10.9 fL (9.4-12.4); Monocytes # 1.1 K/mcL (0.0-1.3); Monocytes % 9.5 %; Red Blood Count 2.43 M/mcL (4.19-5.50); Red Cell Distribution Width 18.9 % (11.5-14.5); Segmented Neutrophils % 82.9 %
[2018-07-21 05:17] LABS: Neutrophils # 9.1 K/mcL (1.6-8.9); Platelet Count 88 K/mcL (140-400)
[2018-07-21 05:33] LABS: Calcium 7.7 mg/dL (8.6-10.3); Potassium 3.9 mEq/L (3.5-5.1)
[2018-07-21] MEDS: *HR* HYDROcodone/Acet 5/325 mg TABLET PO PRN (05:39)
--- NOTE | 2018-07-21 08:02 | Internal Med Progress Note ---
Hospitalist Progress Note - Encounter Date of Encounter: 07/21/18 - Exam Vitals: Temp Pulse Resp BP Pulse Ox 97.5 F L 84 16 94/55 96 07/21/18 06:39 07/21/18 06:39 07/21/18 06:39 07/21/18 06:39 07/21/18 06:39 - Time Spent with Patient Total time spent is greater than 50% in coordination of care (as documented) at patient's floor/unit and/or counseling patient: Internal Medicine: Result - Labs CBC & Chem 7: 07/21/18 04:21 07/21/18 04:21 Labs: Short CBC 07/20/18 07/21/18 Range/Units 10:46 04:21 WBC 11.0 11.0 (4.3-11.1) K/mcL Hgb 7.2 L 7.3 L (12.9-16.9) g/dL Hct 21.7 L 22.6 L (37.5-50.1) % Plt Count 80 L 88 L (140-400) K/mcL Neutrophils # 8.7 9.1 H (1.6-8.9) K/mcL BMP 07/20/18 07/21/18 10:46 04:21 Sodium 134 L 134 L Potassium 4.1 3.9 Chloride 111 H 114 H Carbon Dioxide 14 L 14 L BUN 30 H 27 H Creatinine 2.97 H 2.33 H Glucose 142 H 137 H Calcium 7.8 L 7.7 L - ABG Interpretation ABG results: PT/INR, D-dimer PT 18.0 Seconds (9.4-12.1) H 07/18/18 13:31 Consult Discharge Plan - Plan Referrals: NONE,PCP [Primary Care Provider] -
[2018-07-21] MEDS: Budesonide/Formoterol 160/4.5 1 PUFF INH IH SCH (08:30)
[2018-07-21] MEDS: 0.9 % Sodium Chloride 1,000 ML IVC SCH (08:43)
[2018-07-21] MEDS: Neosporin OINT 15 GM TUBE TP SCH (08:45)
[2018-07-21] MEDS ORDERED: NON-FORMULARY MEDICATION 1 EACH EACH (Pantoprazole Sodium [Protonix] 40 MG) PO SCH (09:00)
[2018-07-21] MEDS ORDERED: Multivit/Ca/Min/Fe/FA 1 TAB TABLET PO SCH (09:00)
[2018-07-21 10:43] VITALS: BP 117/50
[2018-07-21] MEDS ORDERED: Iron Sucrose Complex 250 MG in 0.9 % Sodium Chloride 250 ML IVPB SCH (11:15)
--- NOTE | 2018-07-21 12:09 | Discharge Summary ---
<Krishna Smith - Last Filed: 07/21/18 14:10> - NOTES TO OUTPATIENT PROVIDER Notes to Outpatient Provider: outpatient cbc amd BMP on 07/24/2018 that need to be followed up on. Orders not resulted at time of discharge: Pending orders 07/18/18 13:31 Culture,Blood [BC] Stat 07/21/18 01:37 EKG [ECG 12 lead ECG] [ECG] Stat 07/21/18 01:40 EKG [ECG 12 lead ECG] [ECG] Stat 07/21/18 11:30 H/H [Hemoglobin and Hematocrit] [HEME] Routine 07/21/18 14:00 Renal Function Panel Routine Date of Encounter: 07/21/18 Time of Encounter: 12:07 - Discharge Diagnosis (1) GI bleeding Priority: Primary Status: Resolved Qualifiers: GI bleed type/associated pathology: unspecified gastrointestinal hemorrhage type Qualified Code(s): K92.2 - Gastrointestinal hemorrhage, unspecified (2) Acute renal failure superimposed on stage 3 chronic kidney disease Priority: Secondary Status: Acute Qualifiers: Acute renal failure type: unspecified Qualified Code(s): N17.9 - Acute kidney failure, unspecified; N18.3 - Chronic kidney disease, stage 3 (moderate) (3) Cirrhosis of liver Priority: Secondary Status: Chronic Qualifiers: Hepatic cirrhosis type: alcoholic cirrhosis Ascites presence: without ascites Qualified Code(s): K70.30 - Alcoholic cirrhosis of liver without ascites (4) DVT prophylaxis Priority: Secondary Status: Chronic (5) Thrombocytopenia Priority: Secondary Status: Chronic (6) Tobacco use Priority: Secondary Status: Chronic (7) Wound of skin Priority: Secondary Status: Acute Hospital course: Mr. Broussard is a 73 year old male presents with chief complaint of GI bleed. Patient has had multiple admissions of GI bleed in the past couple months. Patient was discharged from the hospital on 07/17/18 after being admitted for bleeding from the ileostomy bag and at that time underwent small bowel enteroscopy showing bleeding from the external surface of the ileostomy which was cauterized with APC. After being discharged at that time he did not leave the building as his ride did not pick him up and he was outside the hospital overnight. His colostomy bag came loose and he again had persistent oozing from the ileostomy and presented to the ED.he was found to have a hemoglobin of 5.6and was transfused 2 units of packed red blood cells.GI was consulted and reported patient does not need repeat enteroscopy and consulted with surgery who placed a suture in the ostomy. 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 since then patient's hemoglobin has been stable around 7. He also had a unexplained leukocytosis and was started on empiric Zosyn which was discontinued as blood cultures andurine cultures were negative and leukocytosis improved with improving anemia.furthermore, patient had acute kidney injury on CKD3 with a peak in his serum creatinine at 3.42. This improved with IV fluids, blood transfusion. Today his serum creatinine is 2.33 which is still not at his basel ine and he will be discharged with a BMP order for 07/24/2018.furthermore patient has cirrhosis of the liver and initially was started on lactulose but this was discontinued as patient did not have evidence of hepatic encephalopathy. overall Patient admitted for GI bleed found to have a varices near his ostomy which was sutured by surgery and his hemoglobin has remained stable thereafter. He is improving kidney function. He will have a follow-up CBC BMP in 3 days. He received 1 dose of IV iron andv2 units of packed red blood cells. He is hemodynamically stable and ambulating independently. Discharge discussed with: patient - Time Spent with Patient Total time spent providing and/or coordinating discharge services: - Discharge Medications Prescriptions: Continue Multivitamin/Iron/Folic Acid [Centrum Complete Multivit Tab] 1 tab PO DAILY Pantoprazole Sodium [Protonix] 40 mg PO DAILY #90 tablet. Budesonide/Formoterol 160/4.5 [Symbicort 160/4.5] 2 puff IH Q12H #1 inhaler Albuterol Sulfate [Ventolin Hfa] 2 puff IH Q6H PRN #1 hfa.aer.ad PRN Reason: Shortness Of Breath Loperamide [Imodium] 4 mg PO PRN PRN MDD 12 tab/24hr PRN Reason: Diarrhea Ergocalciferol (VITAMIN D2) [Vitamin D2] 50,000 units PO FR LORazepam [Ativan] 0.5 mg PO TID PRN 30 Days #90 tablet PRN Reason: Anxiety OxyCODONE Immed Rel [Roxicodone 5 MG] 1 tab PO BID PRN 30 Days #60 tablet PRN Reason: Pain Ferrous Sulfate [Iron] 325 mg PO DAILY Maximiliano/Poly/Nataly OINT [Triple Antibiotic Ointment] 1 appl TP TID 30 Days #1 tube Home Medications: Multivitamin/Iron/Folic Acid [Centrum Complete Multivit Tab] 1 tab PO DAILY 04/02/15 [History] Pantoprazole Sodium [Protonix] 40 mg PO DAILY #90 tablet. 12/01/17 [Rx] Budesonide/Formoterol 160/4.5 [Symbicort 160/4.5] 2 puff IH Q12H #1 inhaler 02/07/18 [Rx] Albuterol Sulfate [Ventolin Hfa] 2 puff IH Q6H PRN #1 hfa.aer.ad 04/10/18 [Rx] Loperamide [Imodium] 4 mg PO PRN PRN MDD 12 tab/24hr 06/13/18 [History] Ergocalciferol (VITAMIN D2) [Vitamin D2] 50,000 units PO FR 06/14/18 [History] LORazepam [Ativan] 0.5 mg PO TID PRN 30 Days #90 tablet 07/12/18 [Rx] OxyCODONE Immed Rel [Roxicodone 5 MG] 1 tab PO BID PRN 30 Days #60 tablet 07/12/18 [Rx] Ferrous Sulfate [Iron] 325 mg PO DAILY 07/16/18 [History] Maximiliano/Poly/Nataly OINT [Triple Antibiotic Ointment] 1 appl TP TID 30 Days #1 tube 07/17/18 [Rx] Allergies/Adverse Reactions: Allergy/AdvReac Type Severity Reaction Status Date / Time No Known Allergies Allergy Verified 07/16/18 19:37 Date of admission: 07/18/18 11:31 Primary care physician: PCP NONE Consults: 07/18/18 09:54 Consult to Gastroenterology [CONS] Stat Consulting Provider: [facility] [place] Reason for Consult: gi bleeding Call Completed: Yes 07/18/18 12:37 Consult to Surgery [CONS] Routine Consulting Provider: Acute Care Surgery Reason for Consult: bleeding from ileostomy site Call Completed: Yes 07/18/18 12:50 Consult to Hospice Home Health Aide [CONS] Routine Reason for SW Consult: Discharge planning 07/19/18 15:00 Consult to Dialysis [CONS] ONCE 07/20/18 15:00 Consult to Dialysis [CONS] ONCE Discharging clinician: Krishna Smith Anticipated date of discharge: 07/21/18 - Constitutional Vitals: Temp Pulse Resp BP Pulse Ox 97.4 F L 80 16 117/50 96 07/21/18 10:22 07/21/18 10:22 07/21/18 10:22 07/21/18 10:22 07/21/18 10:22 Exam: General: pleasant, without distress Cardiovascualr: Regular rate and rhythm with no murmur, absent gallops or rubs, absent pedal edema, radial pulses 2 out of 4 Lungs: Clear to auscultation bilaterally, not in respiratory distress Abdomen: Soft nontender, nondistended positive bowel sounds,ostomyintact with bag filled with brown feces. No signs of bleeding. Skin: warm and dry, absent rash, absent open wounds and nodules MSK: absent clubbing, cyanosis, joints without swelling Neuro: Cranial nerves II through XII intact, UE and LE sensation equal bilaterally, UE and LEstrength 5/5, alert oriented 3, Psych: good insight and judgment - Patient Status Disposition: Home, Self-Care Condition: Fair Functional capacity at discharge: independent ambulation Overall status at discharge: patient is progressing back to baseline - Ambulatory Orders Ambulatory Orders: Basic Metabolic Panel [CHEM] Time Frame: 3 Days, Facility: [facility], Location: Lab Complete Blood Count [HEME] Time Frame: 3 Days, Facility: [facility], Location: Lab - Discharge Instructions Instructions: Iron Rich Diet (DC) Follow Up With: NONE,PCP [Primary Care Provider] - - Diet and Activity Activity: increase activity as tolerated Diet: advance to your usual diet <Anne Chao - Last Filed: 07/21/18 16:31> Orders not resulted at time of discharge: Pending orders 07/18/18 13:31 Culture,Blood [BC] Stat 07/21/18 01:40 EKG [ECG 12 lead ECG] [ECG] Stat Date of Encounter: 07/21/18 - Discharge Diagnosis (1) COPD (chronic obstructive pulmonary disease) Status: Chronic Qualifiers: COPD type: unspecified COPD Qualified Code(s): J44.9 - Chronic obstructive pulmonary disease, unspecified (2) DVT prophylaxis Status: Chronic (3) Cirrhosis of liver Status: Chronic Qualifiers: Hepatic cirrhosis type: alcoholic cirrhosis Ascites presence: without ascites Qualified Code(s): K70.30 - Alcoholic cirrhosis of liver without ascites (4) Anemia Status: Chronic Qualifiers: Anemia type: iron deficiency Iron deficiency anemia type: chronic blood loss Qualified Code(s): D50.0 - Iron deficiency anemia secondary to blood loss (chronic) (5) Acute renal failure superimposed on stage 3 chronic kidney disease Status: Acute Qualifiers: Acute renal failure type: unspecified Qualified Code(s): N17.9 - Acute kidney failure, unspecified; N18.3 - Chronic kidney disease, stage 3 (moderate) (6) Leukocytosis, unspecified Status: Chronic Qualifiers: Leukocytosis type: leukemoid reaction Qualified Code(s): D72.823 - Leukemoid reaction (7) GI bleeding Status: Resolved Qualifiers: GI bleed type/associated pathology: unspecified gastrointestinal hemorrhage type Qualified Code(s): K92.2 - Gastrointestinal hemorrhage, unspecified (8) Thrombocytopenia Status: Chronic Hospital course: Mr. Broussard is a 73 year old male - Time Spent with Patient Total time spent providing and/or coordinating discharge services: Date of admission: 07/18/18 11:31 Primary care physician: PCP NONE Consults: 07/18/18 09:54 Consult to Gastroenterology [CONS] Stat Consulting Provider: [facility] [place] Reason for Consult: gi bleeding Call Completed: Yes 07/18/18 12:37 Consult to Surgery [CONS] Routine Consulting Provider: Acute Care Surgery Reason for Consult: bleeding from ileostomy site Call Completed: Yes 07/18/18 12:50 Consult to Hospice Home Health Aide [CONS] Routine Reason for SW Consult: Discharge planning 07/19/18 15:00 Consult to Dialysis [CONS] ONCE 07/20/18 15:00 Consult to Dialysis [CONS] ONCE - Constitutional Vitals: Temp Pulse Resp BP Pulse Ox 97.4 F L 80 16 117/50 96 07/21/18 10:22 07/21/18 10:22 07/21/18 10:22 07/21/18 10:22 07/21/18 10:22 - Attending Attestation I examined this patient and my medical decision-making was reviewed with the Resident Physician. I agree with the documented findings, disposition and treatment plan as described except to the extent set forth below.
[2018-07-21 12:48] LABS: Hemoglobin 7.4 g/dL (12.9-16.9)
[2018-07-21 13:11] LABS: Albumin 2.6 g/dL (3.5-5.7); Calcium 7.7 mg/dL (8.6-10.3); Potassium 3.6 mEq/L (3.5-5.1)
--- NOTE | 2018-07-22 09:54 | Electrocardiograph Report ---
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
--- NOTE | 2018-07-23 16:40 | Electrocardiograph Report ---
[address] [address] Test Date: 2018-07-21 Pat Name: Gonzalo Broussard Department: 115 Room: 3A Gender: M Cuff Turner: [id number] : 1945 Requested By: Sangeeta Maher Order Number: [id number] Reading MD: Gricel Pierson Measurements Intervals [place] Rate: 82 P: 62 SD: 168 QRS: 45 QRSD: 88 T: 49 QT: 375 QTc: 413 Interpretive Statements SINUS RHYTHM POSSIBLE RIGHT VENTRICULAR CONDUCTION DELAY Electronically Signed On 07-23-2018 16:39:07 EDT by Gricel Pierson
== END 2018-07-21 16:05 | disposition home or self-care (01) ==
LOC: 3ANU 06:20 → EMEROOARM 06:20 → SUATTDRO 11:31 → 3ANU 11:37
PROVIDERS: ADMIT Internal Medicine; ATTEND Internal Medicine